=== PATIENT | female | born 1995 | race Caucasian/White ===

== ENCOUNTER 2018-05-08 10:16 | Outpatient (REF) | payer MEDICAID, SELFPAY ==
--- NOTE | 2018-05-08 09:40 | PAPFT_PTH ---
PATIENT: Karlie Corea LOC: [facility] U#:[id number] AGE/SX: 23/F ROOM: RE05/08/[address]: Michelle Walls : 1995 BED: DIS: 05/08/2018 SPEC #: [id number] RECD: 05/08/18 13:21 STATUS: GENIE REIsai #: [id number] GREGORY: 05/08/18 09:[address]: Karlos Bae DEPT: [facility] Cytology RECD BY: Christal Chun ENTERED: 05/08/18 13:21 SP TYPE: PAPFT TING DR: Moi Leon Tissues: 1 - CX/ENDOCX FOR PAP SMEARS Procedures: PAP THIN PREP/[facility]VM Screening Comments: [id number]
== END 2018-05-08 10:36 ==
LOC: LBN 10:16
PROVIDERS: PCP Family Medicine; Visit Provider Obstetrics & Gynecology Gynecology
DX: Z12.4 Encounter for screening for malignant neoplasm of cervix (principal)
CPT/HCPCS: 88142

== ENCOUNTER 2019-04-20 03:25 | Outpatient (REF) | payer MEDICAID, SELFPAY ==
[2019-04-20 17:02] LABS: *AMPHETAMINES SCREEN URINE Negative (Negative); *BARBITURATES SCREEN URINE Negative (Negative); *BENZODIAZEPINES SCREEN URINE Negative (Negative); Cannabinoids THC Negative (Negative); Cocaine Screen,Urine Negative (Negative); METHADONE URINE SCREEN Negative (Negative); OPIATES URINE SCREEN Negative (Negative)
[2019-04-20 17:05] LABS: Tricyclic Antidepressants Negative (Negative)
[2019-04-23 13:45] LABS: Chlamydia Result Negative; GC Result Negative
[2019-04-29 08:47] LABS: Buprenorphine Negative; Norbuprenorphine Negative
== END 2019-04-20 03:45 ==
LOC: LBN 03:25
PROVIDERS: PCP Family Medicine; Visit Provider Advanced Practice Midwife
DX: Z34.91 Encounter for supervision of normal pregnancy, unspecified, first trimester (principal); Z11.3 Encounter for screening for infections with a predominantly sexual mode of transmission
CPT/HCPCS: 80307; 87491; 87591; 87086

== ENCOUNTER 2019-05-17 01:31 | Outpatient (CLI) | payer MEDICAID, SELFPAY ==
[2019-05-17 14:30] LABS: Glucose,1 Hr (Glucola) 76 mg/dL (80-140)
[2019-05-17 14:38] LABS: Abs Immature Grans 0.01 k/cumm (0.0-0.09); Absolute Eosinophil Count 0.07 k/cumm (0.0-0.7); Absolute Lymphocyte Count 1.61 k/cumm (1.2-3.4); Absolute Monocyte Count 0.48 k/cumm (0.11-0.7); Absolute Neutrophil Count 6.56 k/cumm (1.2-6.7); Eosinophils % 0.8; HCT 33.5 % (36.0-46.0); Immature Grans % 0.1; Lymphocytes % 18.4; Mean Corp. HGB Concentration 32.8 g/dL (32.0-36.0); Mean Corpuscular Hemoglobin 20.8 pg (27.0-33.0); Mean Corpuscular Volume 63.3 fL (80-95); Monocytes % 5.5; Neutrophils % 75.2; RBC 5.29 m/cumm (4.00-5.20); RBC Distribution Width 20.9 % (11.7-14.6); White Blood Cell Count 8.73 k/cumm (4.4-10.8)
[2019-05-17 15:09] LABS: Diff Comment RBC Morph Reviewed
[2019-05-17 15:10] LABS: Anisocytosis 2+; Hypochromasia 1+; Microcytosis 2+; Poikilocytes 1+; Polychromasia Present
[2019-05-17 15:12] LABS: Platelet Count 253 x1000/uL (130-400)
[2019-05-17 15:17] LABS: TSH (W/Ref FT4) 0.68 uIU/mL (0.36-3.74)
[2019-05-18 10:37] LABS: HIV-1/2 Ag & Ab Screen Negative (NEGAT)
[2019-05-18 10:39] LABS: Hepatitis B Surface Ag Negative (NEGAT); Hepatitis C Ab w Rflx HCV PCR Negative (NEGAT)
[2019-05-18 11:17] LABS: Varicella IgG Antibody Positive
[2019-05-18 11:22] LABS: Rubella IgG Ab (UVM) Positive
[2019-05-18 16:01] LABS: Syphilis Total Ab w/Reflex Nonreactive (Nonreactive)
== END 2019-05-17 01:51 ==
PROVIDERS: Advanced Practice Midwife; PCP Family Medicine; Visit Provider Internal Medicine Interventional Cardiology
DX: Z34.91 Encounter for supervision of normal pregnancy, unspecified, first trimester (principal); Z11.4 Encounter for screening for human immunodeficiency virus [HIV]; Z11.59 Encounter for screening for other viral diseases; Z01.84 Encounter for antibody response examination
CPT/HCPCS: 36415; 82950; 86787; 86803; 86850; 86900; 86901; 87340; 87389; 84443; 85025; 86762; 86780

== ENCOUNTER 2019-05-21 14:07 | Outpatient (REF) | payer MEDICAID, SELFPAY | END 2019-05-21 14:27 | LOC: LBN 14:07 | PROVIDERS: PCP Family Medicine; Visit Provider Advanced Practice Midwife | DX: R30.0 Dysuria (principal) | CPT/HCPCS: 87077; 87086; 87186 ==

== ENCOUNTER 2019-07-19 02:08 | Outpatient (CLI) | payer MEDICAID, SELFPAY ==
--- NOTE | 2019-07-19 13:47 | DI.US_ITS ---
EXAM: US OB 2-3 TRIMESTER CLINICAL HISTORY: Z34.90 SUPERVISION NORMAL TECHNIQUE: Ultrasound performed using standard protocol. COMPARISON: BIOPHYSICAL PROFILE AND LTD OB from 03/17/2018 FINDINGS: There is a single living intrauterine gestation. The fetus is in the breech position. heart r ate is 160 beats per minute. No anatomic abnormalities are identified. Estimated gestational age is 23 weeks. Amniotic fluid is within normal limits visually. The placenta is anterior without evidence of previa. IMPRESSION: Single living intrauterine gestation. Estimated sonographic age is 23 weeks.
== END 2019-07-19 02:28 ==
PROVIDERS: PCP Urology; Visit Provider Obstetrics & Gynecology
DX: Z34.92 Encounter for supervision of normal pregnancy, unspecified, second trimester (principal); Z36.89 Encounter for other specified antenatal screening; Z3A.23 23 weeks gestation of pregnancy
CPT/HCPCS: 76805

== ENCOUNTER 2019-08-31 01:49 | Outpatient (CLI) | payer MEDICAID, SELFPAY ==
[2019-08-31 15:42] LABS: Abs Immature Grans 0.03 k/cumm (0.0-0.09); Absolute Eosinophil Count 0.07 k/cumm (0.0-0.7); Absolute Lymphocyte Count 1.79 k/cumm (1.2-3.4); Absolute Monocyte Count 0.51 k/cumm (0.11-0.7); Absolute Neutrophil Count 7.18 k/cumm (1.2-6.7); Eosinophils % 0.7; HCT 31.2 % (36.0-46.0); HGB 10.3 g/dL (12.0-15.5); Immature Grans % 0.3 %; Lymphocytes % 18.7; Mean Corpuscular Hemoglobin 22.1 pg (27.0-33.0); Mean Corpuscular Volume 66.8 fL (80-95); Mean Platelet Volume 10.9 fL (8.0-11.0); Monocytes % 5.3; Platelet Count 279 x1000/uL (130-400); RBC 4.67 m/cumm (4.00-5.20); RBC Distribution Width 19.4 % (11.7-14.6); White Blood Cell Count 9.58 k/cumm (4.4-10.8)
[2019-08-31 15:46] LABS: Glucose,1 Hr (Glucola) 141 mg/dL (80-140)
[2019-08-31 16:06] LABS: Diff Comment RBC Morph Reviewed; Microcytosis 3+
== END 2019-08-31 02:09 ==
PROVIDERS: PCP Urology; Visit Provider Obstetrics & Gynecology
DX: Z34.93 Encounter for supervision of normal pregnancy, unspecified, third trimester (principal)
CPT/HCPCS: 36415; 82950; 85025

== ENCOUNTER 2019-09-20 02:18 | Outpatient (CLI) | payer MEDICAID, SELFPAY ==
[2019-09-20 09:51] LABS: Glucose 1 Hour 125 mg/dL
[2019-09-20 11:42] LABS: Glucose 3 Hour 118 mg/dL
== END 2019-09-20 02:38 ==
PROVIDERS: PCP Urology; Visit Provider Obstetrics & Gynecology Gynecology
DX: Z34.93 Encounter for supervision of normal pregnancy, unspecified, third trimester (principal)
CPT/HCPCS: 36410; 36415; 82951

== ENCOUNTER 2019-09-28 01:50 | Outpatient (CLI) | payer MEDICAID, SELFPAY ==
--- NOTE | 2019-09-28 13:11 | DI.US_ITS ---
EXAM: US OB XIOMARA WEIGHT CLINICAL HISTORY: abnormal 1 hour glucola, Z34.90 TECHNIQUE: Ultrasound performed using standard protocol. COMPARISON: US OB 2-3 TRIMESTER from 07/19/2019 FINDINGS: Ob ultrasound was performed utilizing 3rd trimester protocol. Placenta is anterior with no placenta previa. Visually there is a normal quantity of amniotic fluid and the XIOMARA is 18. Fetus is in cephal ic presentation. biometry is consistent with gestational age 33 weeks 6 days and an EDC of 11/10/2019. The estimated weight is 2259 grams which is at the 80th percentile for predicted gestational ag e.
== END 2019-09-28 02:10 ==
PROVIDERS: PCP Urology; Visit Provider Obstetrics & Gynecology
DX: Z34.93 Encounter for supervision of normal pregnancy, unspecified, third trimester (principal); Z3A.33 33 weeks gestation of pregnancy
CPT/HCPCS: 76816

== ENCOUNTER 2019-10-22 09:56 | Outpatient (CLI) | payer MEDICAID, SELFPAY ==
[2019-10-22 10:26] LABS: HCT 35.2 % (36.0-46.0); HGB 11.7 g/dL (12.0-15.5); Mean Corp. HGB Concentration 33.2 g/dL (32.0-36.0); Mean Corpuscular Volume 66.3 fL (80-95); Mean Platelet Volume 11.4 fL (8.0-11.0); Platelet Count 306 x1000/uL (130-400); RBC 5.31 m/cumm (4.00-5.20); RBC Distribution Width 19.8 % (11.7-14.6)
== END 2019-10-22 10:16 ==
PROVIDERS: PCP Urology; Visit Provider Obstetrics & Gynecology
DX: Z34.93 Encounter for supervision of normal pregnancy, unspecified, third trimester (principal)
CPT/HCPCS: 36415; 85027; 87081

== ENCOUNTER 2019-10-22 10:05 | Outpatient (REF) | payer MEDICAID, SELFPAY ==
[2019-10-22 11:41] LABS: *AMPHETAMINES SCREEN URINE Negative (Negative); *BARBITURATES SCREEN URINE Negative (Negative); *BENZODIAZEPINES SCREEN URINE Negative (Negative); Cannabinoids THC Negative (Negative); Cocaine Screen,Urine Negative (Negative); METHADONE URINE SCREEN Negative (Negative); OPIATES URINE SCREEN Negative (Negative)
[2019-10-22 11:43] LABS: Tricyclic Antidepressants Negative (Negative)
[2019-10-25 10:08] LABS: Buprenorphine Negative; Norbuprenorphine Negative
== END 2019-10-22 10:25 ==
LOC: LBN 10:05
PROVIDERS: PCP Urology; Visit Provider Obstetrics & Gynecology
DX: Z34.93 Encounter for supervision of normal pregnancy, unspecified, third trimester (principal); Z36.85 Encounter for antenatal screening for Streptococcus B
CPT/HCPCS: 80307; 87081

== ENCOUNTER 2019-11-08 15:45 | Outpatient (REF) | payer MEDICAID, SELFPAY | END 2019-11-08 16:05 | LOC: LBN 15:45 | PROVIDERS: PCP Urology; Visit Provider Obstetrics & Gynecology Gynecology | DX: J06.9 Acute upper respiratory infection, unspecified (principal) | CPT/HCPCS: 87449 ==

== ENCOUNTER 2019-11-25 03:16 | Inpatient (IN) | payer MEDICAID, SELFPAY ==
[2019-11-25] MEDS: Normal Saline 100 ML (04:37)
[2019-11-25] MEDS: Lidocaine 1% Multi-Dose 20 ML VIAL (10:30)
[2019-11-25] MEDS: Ibuprofen 600 MG TAB ×2 (11:15→18:09)
[2019-11-25] MEDS: Acetaminophen 325 MG TAB (19:45)
[2019-11-26] MEDS: Ibuprofen 600 MG TAB PO ×3 (00:05→15:54)
[2019-11-26] MEDS: HYDROcodone 5/Acetaminophen 325 TAB PO (00:20)
[2019-11-26] MEDS: Acetaminophen 325 MG TAB 650 MG PO (12:24)
--- NOTE | 2019-11-26 16:40 | W.PM.PROGNOT ---
Date of Service Date of service: 11/26/19 Time of Service: 09:00 Assessment and Plan Assessment and plan (1) (normal spontaneous vaginal delivery): Status: Acute Assessment and plan: PPD 1 s/p at term. Plan for discharge home later today. Subjective Subjective Interval history since last seen: Doing well. No problems.. Minimal lochia. No significant pain. Objective Objective Clinical Data: Vital Signs Pain Level 5 11/26/19 15:54 Intake & Output 11/25/19 11/26/19 11/26/19 23:59 11:59 23:59 Weight 220 lb Laboratory Results WBC Cancelled 11/25/19 03:16 RBC Cancelled 11/25/19 03:16 Hgb Cancelled 11/25/19 03:16 Hct Cancelled 11/25/19 03:16 MCV Cancelled 11/25/19 03:16 MCH Cancelled 11/25/19 03:16 MCHC Cancelled 11/25/19 03:16 RDW Cancelled 11/25/19 03:16 Plt Count Cancelled 11/25/19 03:16 MPV Cancelled 11/25/19 03:16
== END 2019-11-26 19:25 | disposition home or self-care (01) | DRG 807 ==
PROVIDERS: Admitting Provider Obstetrics & Gynecology Gynecology; PCP Urology; Visit Provider Obstetrics & Gynecology Gynecology
DX: Z37.0 Single live birth (principal); O71.4 Obstetric high vaginal laceration alone; O48.0 Post-term pregnancy; Z3A.40 40 weeks gestation of pregnancy; O99.824 Streptococcus B carrier state complicating childbirth; O69.81X0 Labor and delivery complicated by cord around neck, without compression, not applicable or unspecified
CPT/HCPCS: 36415; 85027; 86850; 86900; 86901; 99233; J2540; J3490

== ENCOUNTER 2020-12-23 03:19 | Outpatient (CLI) | payer MEDICAID, SELFPAY ==
[2020-12-23 14:04] LABS: *AMPHETAMINES SCREEN URINE Negative (Negative); *BARBITURATES SCREEN URINE Negative (Negative); *BENZODIAZEPINES SCREEN URINE Negative (Negative); Cannabinoids THC Negative (Negative); Cocaine Screen,Urine Negative (Negative); METHADONE URINE SCREEN Negative (Negative); OPIATES URINE SCREEN Negative (Negative)
[2020-12-23 14:09] LABS: Tricyclic Antidepressants Negative (Negative)
[2020-12-24 12:48] LABS: Chlamydia Result Negative (Negative); GC Result Negative (Negative)
[2020-12-27 10:29] LABS: Buprenorphine Negative ng/mL (Cutoff: 5.0); Norbuprenorphine Negative ng/mL (Cutoff: 2.5)
== END 2020-12-23 03:20 | disposition home or self-care (01) ==
LOC: LBO 03:19 → LBN 12:30
PROVIDERS: PCP Urology; Visit Provider Advanced Practice Midwife
DX: Z34.91 Encounter for supervision of normal pregnancy, unspecified, first trimester (principal); Z11.3 Encounter for screening for infections with a predominantly sexual mode of transmission
CPT/HCPCS: 80307; 87491; 87591; 87086

== ENCOUNTER 2020-12-23 03:33 | Outpatient (CLI) | payer MEDICAID, SELFPAY ==
[2020-12-23 11:12] LABS: Abs Immature Grans 0.03 10^3/uL (0.0-0.06); Absolute Basophil Count 0.01 10^3/uL (0.0-0.2); Absolute Eosinophil Count 0.06 10^3/uL (0.0-0.7); Absolute Lymphocyte Count 1.85 10^3/uL (1.2-3.4); Absolute Monocyte Count 0.32 10^3/uL (0.1-0.8); Absolute Neutrophil Count 6.26 10^3/uL (1.2-6.7); Basophils % 0.1; Eosinophils % 0.7; HCT 36.9 % (36.0-46.0); HGB 11.6 g/dL (11.2-15.7); Immature Grans % 0.4; Lymphocytes % 21.7; MCHC 31.4 % (32.0-36.0); MCV 66.7 fL (80-95); Monocytes % 3.8; Neutrophils % 73.3; Nucleated RBC 0 %; RBC 5.53 10^6/uL (3.93-5.22); RDW 20.2 % (11.7-14.6); RDW-SD 46.1 fL; WBC 8.53 10^3/uL (4.4-10.8)
[2020-12-23 11:27] LABS: Glucose,1 Hr (Glucola) 97 mg/dL (80-140)
[2020-12-23 11:30] LABS: Platelet Count 299 10^3/uL (130-400)
[2020-12-23 11:31] LABS: Anisocytosis 2+; Diff Comment Diff Reviewed; Microcytosis 2+
[2020-12-23 12:18] LABS: TSH (W/Ref FT4) 0.54 uIU/mL (0.36-3.74)
[2020-12-24 10:05] LABS: Hepatitis B Surface Ag Negative (Negative)
[2020-12-24 10:45] LABS: HIV-1/2 Ag & Ab Screen Negative (Negative)
[2020-12-24 10:50] LABS: Rubella IgG Ab (UVM) Positive (See Note); Varicella IgG Antibody Positive (See Note)
[2020-12-24 10:57] LABS: Hepatitis C Ab w Rflx HCV PCR Negative (Negative)
[2020-12-24 12:19] LABS: Syphilis Total Ab w/Reflex Nonreactive (Nonreactive)
== END 2020-12-23 03:34 | disposition home or self-care (01) ==
LOC: LBO 03:33
PROVIDERS: Obstetrics & Gynecology; PCP Urology; Visit Provider Advanced Practice Midwife
DX: O99.891 Other specified diseases and conditions complicating pregnancy (principal); Z11.4 Encounter for screening for human immunodeficiency virus [HIV]; Z11.59 Encounter for screening for other viral diseases; Z01.84 Encounter for antibody response examination; Z11.3 Encounter for screening for infections with a predominantly sexual mode of transmission
CPT/HCPCS: 36415; 82950; 86787; 86803; 86850; 86900; 86901; 87340; 87389; 87491; 87591; 84443; 85025; 86762; 86780

== ENCOUNTER 2021-02-16 02:03 | Outpatient (CLI) | payer MEDICAID, SELFPAY ==
--- NOTE | 2021-02-16 07:15 | DI.US_ITS ---
Exam(s) US OB 2-3 TRIMESTER EXAM: US OB 2-3 TRIMESTER CLINICAL HISTORY: Anatomy,z34.90. TECHNIQUE: Transabdominal obstetrical ultrasound was performed. COMPARISON: US US OB XIOMARA WEIGHT from 09/28/2019 FINDINGS: There is a single viable intrauterine gestation with cardiac activity identified-149 bpm. Amniotic fluid: There is a normal amount of amniotic fluid. Placental location: The placenta is posterior fundal grade 0,with no evidence of placenta previa.Dist ance from the tip of placenta to the internal cervical os is 3.7 cm. Cervical length is 4.7 cm. ANATOMY: A 3 vessel umbilical cord is seen. A four-chamber cardiac view was obtained. Right and left ventricular outflow tracts were imaged. There are no obvious abnormalities of the spinal column evident. There is no obvious abnormal ity of the anterior abdominal wall. stomach and urinary bladder are identified and there is no evidence of hydronephrosis. No abnormalities of the upper lip region are identified. No evidence of choroid plexus cysts i n the brain. Dating parameters place this at approximately 20 weeks and 2 days gestational age. BPD measures 20 weeks and 1 day HC measures 20 weeks and 1 day AC measures 20 weeks and 2 days FL measures 20 weeks and 2 days Estimated weight is 343 gm-0 pounds, 12 ounces Fetus is at the 44th percentile on the Hadlock scale. IMPRESSION:: Single viable intrauterine gestation which is approximately 20 weeks and 2 days gestati onal age, implying an SUDARSHAN of July 04, 2021. There are no obvious anomalies evident on today's study. The placenta is posterior-fundal. With no evidence of placenta previa. There is a normal amount of amniotic fluid. DATA REPOSITORY:
== END 2021-02-16 02:23 ==
PROVIDERS: PCP Urology; Visit Provider Obstetrics & Gynecology
DX: Z34.92 Encounter for supervision of normal pregnancy, unspecified, second trimester (principal); Z3A.20 20 weeks gestation of pregnancy
CPT/HCPCS: 76805

== ENCOUNTER 2021-04-14 03:26 | Outpatient (CLI) | payer MEDICAID, SELFPAY ==
[2021-04-14 12:25] LABS: HCT 31.8 % (36.0-46.0); MCH 21.5 pg (27.0-33.0); MCHC 31.4 % (32.0-36.0); MCV 68.4 fL (80-95); MPV 10.8 fL (8.0-11.0); Platelet Count 254 10^3/uL (130-400); RBC 4.65 10^6/uL (3.93-5.22); RDW 19.1 % (11.7-14.6); RDW-SD 45.3 fL; WBC 7.65 10^3/uL (4.4-10.8)
[2021-04-14 12:47] LABS: Glucose,1 Hr (Glucola) 124 mg/dL (80-140)
== END 2021-04-14 03:27 | disposition home or self-care (01) ==
LOC: LBO 03:27
PROVIDERS: PCP Urology; Visit Provider Obstetrics & Gynecology Gynecology
DX: Z34.93 Encounter for supervision of normal pregnancy, unspecified, third trimester (principal); Z3A.28 28 weeks gestation of pregnancy
CPT/HCPCS: 36415; 82950; 85027

== ENCOUNTER 2021-06-16 10:23 | Outpatient (REF) | payer MEDICAID, SELFPAY ==
[2021-06-16 11:43] LABS: *AMPHETAMINES SCREEN URINE Negative (Negative); *BARBITURATES SCREEN URINE Negative (Negative); *BENZODIAZEPINES SCREEN URINE Negative (Negative); Cannabinoids THC Negative (Negative); Cocaine Screen,Urine Negative (Negative); METHADONE URINE SCREEN Negative (Negative); OPIATES URINE SCREEN Negative (Negative)
[2021-06-16 11:46] LABS: Tricyclic Antidepressants Negative (Negative)
[2021-06-19 09:01] LABS: Buprenorphine Negative ng/mL (Cutoff: 5.0); Norbuprenorphine Negative ng/mL (Cutoff: 2.5)
== END 2021-06-16 10:24 | disposition home or self-care (01) ==
LOC: LBN 10:23
PROVIDERS: PCP Urology; Visit Provider Obstetrics & Gynecology
DX: Z34.83 Encounter for supervision of other normal pregnancy, third trimester (principal); Z36.85 Encounter for antenatal screening for Streptococcus B; Z3A.36 36 weeks gestation of pregnancy
CPT/HCPCS: 80307; 87081

== ENCOUNTER 2021-07-04 07:32 | Inpatient (IN) | payer MEDICAID, SELFPAY ==
[2021-07-04] VITALS (10 sets, daily range): BP systolic 124–163; BP diastolic 66–88; PULSE 64–100; RESP 16; TEMP 36.9–37.1
[2021-07-04] MEDS: Normal Saline Flush 10 ML SYR IVP (09:00)
--- NOTE | 2021-07-04 09:20 | HPE_ITS ---
Date of service: 07/04/21 Time of Service: 09:20 Assessment and Plan Assessment and plan (1) Encounter for elective induction of labor: Status: Acute Assessment and plan: With the patient's Martinez score for the plan is cervical ripening with misoprostol. Patient is agreeable to the plan (2) GBS (group B Streptococcus carrier), +RV culture, currently : Status: Acute Assessment and plan: Will begin GBS prophylaxis OB-HPI Labor/Delivery History of Present Illness Reason for Visit: iol Chief Complaint: Scheduled Induction of Labor Indication for Induction: Other (maternal request); Maternal Discomfort , Associated Signs and Symptoms of Maternal Discomfort: pelvic pressure. inability to carry out ADLs.. SUDARSHAN Calculator Estimated Delivery Date Method Current WG Current Estimate 07/04/21 Ultrasound #1 40w 0d Other Estimates 07/03/21 LMP (Uncertain) 40w 1d History of Present Expected Delivery Route/Plan - MD patient FOB-Luke Specific Issues/Plan 1. BMI 34 - early GTT: 97 2. Karlie and partner decline covid vaccine. Had covid 06/2020. 3. 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 Declines genetic testing 5. GBS Positive, will need antibiotic prophylaxis Review of Systems All systems reviewed & are unremarkable except as noted in HPI and below Cardiovascular Cardiovascular: Reports system reviewed and no additional complaints, except as documented Respiratory Respiratory: Reports system reviewed and no additional complaints, except as documented Genitourinary Genitourinary: Reports system reviewed and no additional complaints, except as documented Neurologic Neurologic: Reports system reviewed and no additional complaints, except as documented Psychiatric Psychiatric: Reports system reviewed and no additional complaints, except as documented [facility] Medical History (Updated 07/04/21 @ 11:16 by Michelle Walls MD) 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 Pt's mother and MGM also carry gene. Pt's eval for trait and was negative. at early stage Rash and nonspecific skin eruption Family History (Updated 12/23/20 @ 10:51 by Brook Christine CNM) Father Migraines, neuralgic Sister Seizures Delta thalassemia Maternal Aunt Bone cancer Delta thalassemia Mother Delta thalassemia Social History Smoking/Tobacco Use Status: Never Second Hand Exposure: No Smoking risk assessment performed?: Yes Alcohol Intake: former Drug use: Never Substance use type: does not use Adopted: No Foster care: No Household members: spouse and other Details: Gurwinder Aguayo and Андрей () Number of Children: 2 current occupation: Homemaker Do you think of yourself as: straight/heterosexual Current gender identity: female What is your relationship status?: Panel score (0-1 are the most socially isolated patients): 1 Miriam/Mosque: synagogue Seatbelt use: always Helmet use: Yes Drive intox or ride w/intox power screwdriver operator: No Water heater temp set <120 deg: Yes Working smoke detector in home: Yes Fire extinguisher in home: Yes Carbon monox detector in home: Yes Firearms in home: No Do you feel safe at home: Yes Do you feel safe in your relationship?: Yes Victim of physical abuse: No Victim of emotional abuse: No Victim of sexual abuse: No Female Reproductive History Menstrual control method: natural family planning History History 3 Para 2 Hx # Term Pregnancies 2 Multiple births 0 Hx # Pregnancies 0 Ectopic pregnancies 0 AB induced Hx Number of Living Children 2 AB spontaneous Past Pregnancies Del. Date GA/Weeks # Outcome Route Wgt Sex Labor Lgth Anesthes ia Location Prov Complic 03/21/18 41 Successful vaginal 8 lb 2 oz Male [place] 11/25/19 40 No Successful vaginal 7 lb 8 oz Male 7 hours AOC Delivery Date: 03/21/18 IOL for postdates. [place]. Dr. Michele Christine,[place] Delivery Date: 11/25/19 Michelle Guerrero Allergies and Home Medications Allergies Allergy/AdvReac Type Severity Reaction Status Date / Time tree and shrub pollen Allergy Mild Verified 07/02/21 10:58 Home Medications Medication Instructions Recorded Confirmed Type Formula 1 ea PO DAILY 09/02/17 07/04/21 History Fish Oil 1 ea PO DAILY 11/17/17 07/04/21 History ascorbic acid (vitamin C) 500 mg 500 mg PO DAILY 06/14/19 07/04/21 History tablet ferrous sulfate 325 mg (65 mg 325 mg PO DAILY #30 tab 08/31/19 07/04/21 Rx iron) tablet cholecalciferol (vitamin D3) 125 125 mcg PO DAILY 12/23/20 07/04/21 History mcg (5,000 unit) capsule calcium carb-magnesium carb 250 1 tab PO DAILY tab 05/29/21 07/04/21 History mg-300 mg tablet Exam Physical Exam Vital Signs Reviewed: Yes Narrative: Pt is a 26yo female currently 40w1d EGA by LMP presents for IOL. Constitutional Constitutional: no acute distress Detailed Labor and Delivery Exam Dilation: 1 Effacement (%): 50 station: -3 Cervix position: posterior Consistency: soft Martinez Score: Cervical Points Exam 0 1 2 3 Dilation Closed 1-2cm 3-4 cm 5-6cm Effacement 0-30% 40-50% 60-70% 80% Consistency Firm Medium Soft Station -3 -2 -1,0 +1,+2 Position Posterior Mid Anterior MARTINEZ Score(Cervical Ripeness Score): 4 Amniotic Membrane Status: Intact Monitor Mode: External Contraction Frequency(min): Q4-5 Contraction Duration(sec): 40-60 Contraction Intensity: Mild Fetus A Heart Rate Baseline: 135 Monitor Accelerations: 15 X 15 Monitor Decelerations: None Variability: Moderate (6-25 BPM) Presentation: Cephalic Categories: Category I Est. Weight: 3700 lb HEENT Exam HEENT Exam: Normal Neck Exam Neck Exam: Normal Respiratory Exam Respiratory Exam: Normal Cardiovascular Exam Cardiovascular Exam: Normal Abdominal Exam Abdominal Exam: Normal Rectal Exam Rectal Exam: Not Done Exam Exam: Normal (SVE performed. Pelvis adequate) Extremities Exam Extremities Exam: Normal Skin Exam Skin Exam: Normal Neurological Exam Neurological Exam: Normal Psychiatric Exam Psychiatric Exam: Normal Results Results Group Beta Strep: Positive Risk Assessment Risk for Shoulder Dystocia Historical/Initial OB: POSITIVE FOR: Pre- BMI>30; NEGATIVE FOR: Pelvic Abnormality, Previous Shoulder Dystocia or Previous Macrosomia Risk for Pre-Eclampsia Yes, if one or more: NEGATIVE FOR: Hx Pre-E/Gest HTN, Chronic HTN, Multiple Gestation, Pre-gestational DM, Renal Disease, Systemic Lupus or APA Syndrome Yes, if 2 or more: POSITIVE FOR: BMI>30; NEGATIVE FOR: Nulliparity, Age>= 35 yrs, >10yr btwn pregnancies, ethinicty, Mother/Sister w/ Pre-E or Previous IUGR Risk for Post- Hemorrhage Initial: NEGATIVE FOR: Multiple Gestation, Previous PPH, Known Clotting Deficiency, Grand Multiparity or Anticoagulation Risks Reviewed Risks Reviewed Upon Admission: Yes
[2021-07-04] MEDS: Lactated Ringers 1,000 ML 200 ML IV (09:45)
[2021-07-04] MEDS: Penicillin G POT. 5,000,000 UNITS in Normal Saline 100 ML 200 UNITS IVPB (09:45)
[2021-07-04 09:51] LABS: HCT 38.7 % (36.0-46.0); HGB 12.4 g/dL (11.2-15.7); MCH 22.4 pg (27.0-33.0); MCV 69.9 fL (80-95); MPV 10.7 fL (8.0-11.0); Platelet Count 258 10^3/uL (130-400); RBC 5.54 10^6/uL (3.93-5.22); RDW 18.8 % (11.7-14.6); RDW-SD 44.6 fL; WBC 10.31 10^3/uL (4.4-10.8)
[2021-07-04] MEDS: miSOPROStol 25 MCG TAB VG (09:52)
[2021-07-04] MEDS: Penicillin G POT. 3,000,000 UNITS in Normal Saline 50 ML 100 UNITS IVPB ×2 (13:50→18:05)
--- NOTE | 2021-07-04 13:54 | W.PM.OBNL1 ---
Date of service: 07/04/21 Time of Service: 13:54 Informed Consent Informed Consent: Induction of Labor Contractions Monitor Mode: External Contraction Frequency(min): irreg Intensity: Mild Fetus A Monitor: External (US) Heart Rate Baseline: 135 Variability: Moderate (6-25 BPM) Categories: Category I FHR Rhythm: Regular Characteristics: Normal Accelerations: 15 X 15 Decelerations: None Amniotic Membrane Status: Intact Assessment and Plan Assessment and plan (1) GBS (group B Streptococcus carrier), +RV culture, currently : Status: Acute Assessment and plan: Pt receiving appropriate GBS prophylaxis (2) Encounter for elective induction of labor: Status: Acute Assessment and plan: One dose of vaginal Misoprostil this morning. No evdidence of response to medication. Plan to begin Oxytocin protocol. Objective Abnormal lab results 07/04/21 Range/Units 09:40 RBC 5.54 H (3.93-5.22) 10^6/uL MCV 69.9 L (80-95) fL MCH 22.4 L (27.0-33.0) pg RDW 18.8 H (11.7-14.6) % Temp Pulse Resp BP 98.4 F 71 16 124/75 07/04/21 13:38 07/04/21 13:38 07/04/21 13:38 07/04/21 13:38 Laboratory Results WBC 10.31 10^3/uL (4.4-10.8) 07/04/21 09:40 RBC 5.54 10^6/uL (3.93-5.22) H 07/04/21 09:40 Hgb 12.4 g/dL (11.2-15.7) 07/04/21 09:40 Hct 38.7 % (36.0-46.0) 07/04/21 09:40 MCV 69.9 fL (80-95) L 07/04/21 09:40 MCH 22.4 pg (27.0-33.0) L 07/04/21 09:40 MCHC 32.0 % (32.0-36.0) 07/04/21 09:40 RDW 18.8 % (11.7-14.6) H 07/04/21 09:40 Plt Count 258 10^3/uL (130-400) 07/04/21 09:40 MPV 10.7 fL (8.0-11.0) 07/04/21 09:40 Patient ABO/Rh O Positive 07/04/21 09:40 Antibody Screen NEGATIVE 07/04/21 09:40 Subjective Patient Reports: No new Complaints Interval history since last seen: Pt had one dose of vaginal Misoprostil 25mcg several hours ago with no appreciable increase in contractions or pt discomfort. Results Hemoglobin/Hematocrit: Hgb 12.4 g/dL (11.2-15.7) 07/04/21 09:40 Hct 38.7 % (36.0-46.0) 07/04/21 09:40 Abnormal Lab Findings: Abnormal Labs 07/04/21 09:40 RBC 5.54 H MCV 69.9 L MCH 22.4 L RDW 18.8 H
[2021-07-04] MEDS: Lactated Ringers 1,000 ML 125 ML IV (13:58)
[2021-07-04] MEDS: Oxytocin/Normal Saline 30 UNIT/500 ML BAG 2 UNITS IV (14:20)
--- NOTE | 2021-07-04 16:47 | W.PM.OBNL1 ---
Date of service: 07/04/21 Time of Service: 16:47 Informed Consent Informed Consent: Induction of Labor Pelvic Exam Dilation: 1 Effacement (%): 75 station: -2 Position: OA Cervix Position: mid Consistency: soft Vaginal Exam Presentation: Cephalic Contractions Monitor Mode: External Contraction Frequency(min): 3-5 Contraction Duration(sec): 50 Intensity: Mild/Moderate Fetus A Monitor: External (US) Heart Rate Baseline: 140 Presentation: Cephalic Variability: Moderate (6-25 BPM) Categories: Category I FHR Rhythm: Regular Characteristics: Normal Accelerations: 15 X 15 Decelerations: None Amniotic Membrane Status: Ruptured Rupture Method: Artifical Amniotic Fluid: Clear Date of Membrane Rupture: 07/04/21 Time of Membrane Rupture: 16:48 Assessment and Plan Assessment and plan (1) Encounter for elective induction of labor: Status: Acute Assessment and plan: Oxytocin infusion currently 6 milliunits/min. AROM performed without difficulty. We will continue present course of management. (2) GBS (group B Streptococcus carrier), +RV culture, currently : Status: Acute Objective Abnormal lab results 07/04/21 Range/Units 09:40 RBC 5.54 H (3.93-5.22) 10^6/uL MCV 69.9 L (80-95) fL MCH 22.4 L (27.0-33.0) pg RDW 18.8 H (11.7-14.6) % Temp Pulse Resp BP 98.4 F 71 16 124/75 07/04/21 13:38 07/04/21 13:38 07/04/21 13:38 07/04/21 13:38 Laboratory Results WBC 10.31 10^3/uL (4.4-10.8) 07/04/21 09:40 RBC 5.54 10^6/uL (3.93-5.22) H 07/04/21 09:40 Hgb 12.4 g/dL (11.2-15.7) 07/04/21 09:40 Hct 38.7 % (36.0-46.0) 07/04/21 09:40 MCV 69.9 fL (80-95) L 07/04/21 09:40 MCH 22.4 pg (27.0-33.0) L 07/04/21 09:40 MCHC 32.0 % (32.0-36.0) 07/04/21 09:40 RDW 18.8 % (11.7-14.6) H 07/04/21 09:40 Plt Count 258 10^3/uL (130-400) 07/04/21 09:40 MPV 10.7 fL (8.0-11.0) 07/04/21 09:40 Patient ABO/Rh O Positive 07/04/21 09:40 Antibody Screen NEGATIVE 07/04/21 09:40 Subjective Patient Reports: No new Complaints Results Hemoglobin/Hematocrit: Hgb 12.4 g/dL (11.2-15.7) 07/04/21 09:40 Hct 38.7 % (36.0-46.0) 07/04/21 09:40 Abnormal Lab Findings: Abnormal Labs 07/04/21 09:40 RBC 5.54 H MCV 69.9 L MCH 22.4 L RDW 18.8 H Procedure Procedures: Cervical Ripening Cervical Ripening: Misoprostol
[2021-07-04] MEDS: Ibuprofen 600 MG TAB PO (20:39)
[2021-07-04] MEDS: Acetaminophen 325 MG TAB 650 MG PO (23:13)
[2021-07-05] MEDS: Ibuprofen 600 MG TAB PO ×2 (02:14→07:45)
[2021-07-05] MEDS: Acetaminophen 325 MG TAB 650 MG PO ×3 (02:14→11:42)
[2021-07-05 02:23] VITALS: BP 144/84; PULSE 75; RESP 18; TEMP 36.7
[2021-07-05] MEDS: Docusate Sodium 100 MG CAP PO (07:45)
--- NOTE | 2021-07-05 10:54 | W.OBDELIVERY ---
Date of service: 07/05/21 Time of Service: 10:54 OB Labor/ Delivery Information Providers Doctor: Michelle Walls Nurse: Lorena Pantoja Nurse: Sandrita Jeffries Labor/Delivery Information Number of Babies in Womb: 1 Steroids Given: None Reason Steroids Not Administered: N/A Group Beta Strep: Positive Rubella Status: Immune Blood Type: O+ Varicella Immunity: Immune Maternal Complications: None Shoulder Dystocia: No Stages of Labor Onset of Labor Date: 07/04/21 Onset of Labor Time: 18:00 Complete Dilatation Date: 07/04/21 Complete Dilatation Time: 19:40 Labor - Stage 1 Duration: 0 minutes ROM Baby A: 07/04/21 ROM Baby A: 16:48 ROM Total Time- Baby A: [id number] Delivery Date-Baby A: 07/04/21 Delivery Time-Baby A: 19:46 Labor Stage 2 Duration: 6 minutes Placenta Delivery Date-Baby A: 07/04/21 Placenta Delivery Time-Baby A: 19:56 Labor-Stage 3 Duration: 10 minutes Total Length of Labor-Baby A: 1 hours and 46 minutes Placenta Cultured: No Placenta Status: Delivered Baby A Gender: Female Gestational Status: Term (39-41.6 wks) Gestational Age in Weeks/Days: 40 Weeks and 0 Days weight: 7 lb 8.637 oz Length-Baby A: 19.69 in Head Circumference-Baby A: 13.58 in Score-1 Minute Interval(Baby A) Heart Rate-1 minute: 100 BPM or Greater Respiratory Effort- 1 minute: Spontaneous/Strong Cry Muscle Tone-1 minute: Active Movement Reflex Response-1 minute: Prompt Response Color-1 minute: Pallor or Cyanosis Total Score-1 minute: 8 Score-5 Minute Interval(Baby A) Heart Rate- 5 minute: 100 BPM or Greater Respiratory Effort-5 minute: Spontaneous/Strong Cry Muscle Tone-5 minute: Active Movement Reflex Response-5 minute: Prompt Response Color-5 minute: Bluish Hands or Feet Total Score- 5 minute: 9 Hemorrrhage Note Total Blood Loss for PPH Event Quantitative Blood Loss: 100
--- NOTE | 2021-07-05 10:55 | W.PM.OBDISCH ---
Date of service: 07/05/21 Time of Service: 10:56 DS: Diagnosis Discharge Diagnosis (1) Encounter for elective induction of labor: Status: Acute (2) GBS (group B Streptococcus carrier), +RV culture, currently : Status: Acute (3) Vaginal delivery: Status: Acute Discharge Plan Disposition Patient Disposition: HOME Condition: Good Discharge Details Reason For Visit: iol Admit Date/Time: 07/04/21 07:32 Admit Provider: Michelle Walls Attending Provider: Michelle Walls Primary Care Provider: Spencer Adkins Hospital Course Hospital Course: Patient was admitted on 07/04/2021 at term for elective induction of labor secondary maternal discomfort. She had 1 dose of 25 mcg misoprostol vaginally in the morning and receive oxytocin augmentation. She went on to have spontaneous vaginal delivery of a healthy female infant Apgars 9/9. Her daughter is at this time unnamed. Patient requested discharged home on day 1 successfully breast-feeding without complaints of pain or breast discomfort. The plan is to have her make an appointment for 2-week women's wellness visit. Home Meds and New Rx's Prescriptions: No Action cholecalciferol (vitamin D3) 125 mcg (5,000 unit) capsule 125 mcg PO DAILY RF: 0 calcium carb-magnesium carb 250-300 mg tablet 1 tab PO DAILY RF: 0 ferrous sulfate [Feosol] 325 mg (65 mg iron) tablet 325 mg PO DAILY Qty: 30 RF: 4 Formula 1 EACH tablet 1 ea PO DAILY RF: 0 Fish Oil 1 EACH capsule 1 ea PO DAILY RF: 0 ascorbic acid (vitamin C) [Vitamin C] 500 mg tablet 500 mg PO DAILY RF: 0 Discharge Instructions Additional Instructions: Call women's wellness on 07/06/2021 and make a 2-week visit with Dr. Walls. Stand Alone Forms: BC Instructions, BC Post Vaginal Deliver Activity:: Activity as Tolerated Equipment/Supplies:: No Equipment Needed Diet:: As Tolerated Discharge Orders Discharge Orders: Discharge Order (Routine); Ordered 07/05/21 Ordered By: Michelle Walls OB:DS Summary Summary Episiotomy Description: None Laceration Description: None Laceration Extension: N/A Contraception Discussed Contraception Discussed: Yes Contraceptive Plan: Not planning to use, [place] Infant Gender-Baby A: Female weight: 7 lb 8.637 oz Status at Discharge Functional status at discharge: independent ambulation Overall status at discharge: patient is progressing back to baseline Mental Status: mental status grossly normal Speech and Movement: speech and movement normal Mood: congruent mood Affect: normal affect Exam Physical Exam Vital signs: Temp Pulse Resp BP 98.1 F 75 18 144/84 H 07/05/21 02:23 07/05/21 02:23 07/05/21 02:23 07/05/21 02:23 Vital Signs Reviewed: Yes Narrative: day 1 after spontaneous vaginal delivery for an elective induction of labor at term. Uncomplicated spontaneous vaginal delivery. Patient has been breast-feeding successfully and wishes to be discharged with her home later today. She will follow up in the office in approximately 2 weeks for a check. Constitutional Constitutional: no acute distress HEENT Exam HEENT Exam: Normal Neck Exam Neck Exam: Normal Respiratory Exam Respiratory Exam: Normal Cardiovascular Exam Cardiovascular Exam: Normal Abdominal Exam Abdomen: Diastasis (None abdomen soft nontender) Fundal Exam Fundus: Below Umbilicus Rectal Exam Rectal Exam: Not Done Extremities Exam Extremity Exam: Normal Back/Spine/Pelvis Exam Back Exam: Not Done Skin Exam Skin Exam: Normal Neurological Exam Neurological Exam: Not Done Psychiatric Exam Psychiatric Exam: Normal [facility] Medical History (Updated 07/05/21 @ 10:56 by Michelle Walls MD) 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 Pt's mother and MGM also carry gene. Pt's eval for trait and was negative. at early stage Rash and nonspecific skin eruption Family History (Updated 12/23/20 @ 10:51 by Brook Christine CNM) Father Migraines, neuralgic Sister Seizures Delta thalassemia Maternal Aunt Bone cancer Delta thalassemia Mother Delta thalassemia Social History (Updated 07/05/21 @ 10:57 by Michelle Walls MD) Smoking/Tobacco Use Status: Never Second Hand Exposure: No Smoking risk assessment performed?: Yes Alcohol Intake: former Drug use: Never Substance use type: does not use Adopted: No Foster care: No Household members: spouse and other Details: Gurwinder Aguayo and Андрей (infant) Number of Children: 3 current occupation: Homemaker Do you think of yourself as: straight/heterosexual Current gender identity: female What is your relationship status?: Panel score (0-1 are the most socially isolated patients): 1 Miriam/Scientologist: christianity Seatbelt use: always Helmet use: Yes Drive intox or ride w/intox regional company flatbed truck driver: No Water heater temp set <120 deg: Yes Working smoke detector in home: Yes Fire extinguisher in home: Yes Carbon monox detector in home: Yes Firearms in home: No Do you feel safe at home: Yes Do you feel safe in your relationship?: Yes Victim of physical abuse: No Victim of emotional abuse: No Victim of sexual abuse: No Female Reproductive History Menstrual control method: natural family planning History History 3 Para 2 Hx # Term Pregnancies 2 Multiple births 0 Hx # Pregnancies 0 Ectopic pregnancies 0 AB induced Hx Number of Living Children 2 AB spontaneous Past Pregnancies Del. Date GA/Weeks # Outcome Route Wgt Sex Labor Lgth Anesthesia Location Prov Complic 03/21/18 41 Successful vaginal 8 lb 2 oz Male [place] 11/25/19 40 No Successful vaginal 7 lb 8 oz Male 7 hours AOC Delivery Date: 03/21/18 IOL for postdates. [place]. Dr. Michele [place] Delivery Date: 11/25/19 Michelle Guerrero DS: Data Vitals/I&O Vitals and I&O: Vital Signs Temperature 98.1 F 07/05/21 02:23 Pulse 75 07/05/21 02:23 Pulse Rhythm Regular 07/05/21 07:16 Respiratory Rate 18 07/05/21 02:23 Respiratory Depth Normal 07/04/21 10:07 Blood Pressure 144/84 H 07/05/21 02:23 Blood Pressure Mean 104 07/05/21 02:23 Oxygen Delivery Method Room Air 07/04/21 09:58 Oxygen Flow Rate 0 07/04/21 09:58 Pain Level 5 07/05/21 02:23 Intake & Output 07/04/21 07/04/21 07/05/21 11:59 23:59 10:59 Intake Total 261.333 / 750.000 488.667 / 488.667 Output Total 200 / 200 1150 / 1150 Balance 61.333 / 550.000 -661.333 / -661.333 Weight 208 lb Intake: IV 261.333 / 750.000 488.667 / 488.667 Output: Urine 200 / 200 1150 / 1150
[2021-07-05 11:16] VITALS: BP 127/84; PULSE 71; RESP 16; TEMP 36.8
== END 2021-07-05 19:55 | disposition home or self-care (01) | DRG 807 ==
PROVIDERS: Admitting Provider Obstetrics & Gynecology Gynecology; PCP Urology; Visit Provider Obstetrics & Gynecology Gynecology
DX: O48.0 Post-term pregnancy (principal); Z37.0 Single live birth; O99.824 Streptococcus B carrier state complicating childbirth; Z3A.40 40 weeks gestation of pregnancy
CPT/HCPCS: 36415; 85027; 86850; 86900; 86901; 59200; J2540; J3490

== ENCOUNTER 2021-08-05 15:45 | Outpatient (REF) | payer MEDICAID, SELFPAY ==
--- NOTE | 2021-08-05 15:30 | PAPFT_PTH ---
PATIENT: Karlie Corea LOC: [facility]O U#:[id number] AGE/SX: 26/F ROOM: RE08/05/[address]: Michelle Walls : 1995 BED: DIS: 08/05/2021 SPEC #: [id number] RECD: 08/05/21 17:11 STATUS: GENIE REQ #: [id number] GREGORY: 08/05/21 15:[address]: Michelle Walls DEPT: [facility] Cytology RECD BY: Christal Chun ENTERED: 08/05/21 17:12 SP TYPE: PAPFT OTHR DR: Spencer Adkins Tissues: 1 - CX/ENDOCX FOR PAP SMEARS Procedures: PAP THIN PREP/[facility] Screening Comments: [id number]
== END 2021-08-05 15:46 | disposition home or self-care (01) ==
LOC: LBN 15:45
PROVIDERS: PCP Urology; Visit Provider Obstetrics & Gynecology Gynecology
DX: Z12.4 Encounter for screening for malignant neoplasm of cervix (principal)
CPT/HCPCS: 88142

== ENCOUNTER 2022-11-01 03:16 | Outpatient (CLI) | payer MEDICAID, SELFPAY ==
[2022-11-01 14:59] LABS: Abs Immature Grans 0.04 10^3/uL (0.0-0.06); Absolute Basophil Count 0.01 10^3/uL (0.0-0.2); Absolute Eosinophil Count 0.06 10^3/uL (0.0-0.7); Absolute Lymphocyte Count 2.17 10^3/uL (1.2-3.4); Absolute Monocyte Count 0.47 10^3/uL (0.1-0.8); Basophils % 0.1; Eosinophils % 0.6; HCT 35.3 % (36.0-46.0); HGB 11.3 g/dL (11.2-15.7); Immature Grans % 0.4; Lymphocytes % 23.2; MCV 66 fL (80-95); Neutrophils % 70.7; Platelet Count 269 10^3/uL (130-400); RBC 5.37 10^6/uL (3.93-5.22); RDW 21.2 % (11.7-14.6); RDW-SD 45.8 fL; WBC 9.35 10^3/uL (4.4-10.8)
[2022-11-01 15:13] LABS: Anisocytosis 2+; Diff Comment Diff Reviewed; Microcytosis 2+
[2022-11-01 15:30] LABS: Glucose,1 Hr (Glucola) 99 mg/dL (80-140)
[2022-11-02 09:51] LABS: HIV-1/2 Ag & Ab Screen Negative (Negative)
[2022-11-02 10:08] LABS: Hepatitis C Ab w Rflx HCV PCR Negative (Negative)
[2022-11-02 10:33] LABS: Hepatitis B Surface Ag Negative (Negative)
[2022-11-02 11:27] LABS: Varicella IgG Antibody Positive (See Note)
[2022-11-02 11:30] LABS: Rubella IgG Ab (UVM) Positive (See Note)
[2022-11-03 15:03] LABS: Syphilis IgG w/Reflex Nonreactive (Nonreactive)
== END 2022-11-01 03:17 | disposition home or self-care (01) ==
LOC: LBO 03:16
PROVIDERS: PCP Urology; Visit Provider Advanced Practice Midwife
DX: Z34.91 Encounter for supervision of normal pregnancy, unspecified, first trimester (principal); Z3A.11 11 weeks gestation of pregnancy
CPT/HCPCS: 36415; 82950; 86787; 86803; 86850; 86900; 86901; 87340; 87389; 85025; 86762; 86780

== ENCOUNTER 2022-11-01 18:50 | Outpatient (REF) | payer MEDICAID, SELFPAY ==
[2022-11-01 15:40] LABS: *AMPHETAMINES SCREEN URINE Negative (Negative); *BARBITURATES SCREEN URINE Negative (Negative); *BENZODIAZEPINES SCREEN URINE Negative (Negative); Cannabinoids THC Negative (Negative); Cocaine Screen,Urine Negative (Negative); METHADONE URINE SCREEN Negative (Negative); OPIATES URINE SCREEN Negative (Negative); Tricyclic Antidepressants Negative (Negative)
[2022-11-03 13:13] LABS: Chlamydia Result Negative (Negative); GC Result Negative (Negative)
[2022-11-05 16:48] LABS: Buprenorphine Negative ng/mL (Cutoff: 5.0); Norbuprenorphine Negative ng/mL (Cutoff: 2.5)
== END 2022-11-01 18:51 | disposition home or self-care (01) ==
LOC: LBN 18:50
PROVIDERS: PCP Urology; Visit Provider Advanced Practice Midwife
DX: Z34.91 Encounter for supervision of normal pregnancy, unspecified, first trimester (principal); Z11.3 Encounter for screening for infections with a predominantly sexual mode of transmission; Z3A.11 11 weeks gestation of pregnancy
CPT/HCPCS: 80307; 80348; 87491; 87591; 87086

== ENCOUNTER 2022-11-25 08:31 | Outpatient (CLI) | payer MEDICAID, SELFPAY ==
--- NOTE | 2022-11-25 08:30 | RT.EKG_ITS ---
APPROVED REPORT Exam: Resting ECG Reason for Exam: palpitations Patient Location: O HR:62 bpm ECG Measurements Heart Rate 62 AXIS IN 137 P 68 QRSd 90 QRS 26 QT 415 T 35 QTc 422 Conclusion Sinus rhythm...normal P axis, V-rate 50- 99 Baseline wander in lead(s) V3 Normal Electrocardiogram
== END 2022-11-25 08:32 | disposition home or self-care (01) ==
LOC: DI.CARD 08:32
PROVIDERS: PCP Urology; Visit Provider Internal Medicine Cardiovascular Disease
DX: R00.2 Palpitations
CPT/HCPCS: 93010

== ENCOUNTER 2022-12-24 00:09 | Outpatient (CLI) | payer MEDICAID, SELFPAY ==
--- NOTE | 2022-12-24 06:30 | DI.US_ITS ---
Exam(s) US OB 2-3 TRIMESTER EXAM: US OB 2-3 TRIMESTER CLINICAL HISTORY: ,z34.90. TECHNIQUE: Transabdominal obstetrical ultrasound performed. COMPARISON: US POCUS EXAM from 10/08/2022 FINDINGS: Number of fetuses: One. position: Variable Placental grade: 1 Placental location: Posterior. No evidence of previa. Tip of placenta measures 3.7 centimeters from the internal os BIOMETRIC DATA: BPD: 43mm = 19+ 0 weeks HC: 164mm = 19+ 1 weeks AC: 134mm = 18+ 6 weeks FL: 29mm = 18+ 6 weeks Cisterna Magna: 3.2 mm Cerebellum: 1.7 cm EFW: 263 grms 48% Composite Age: 19+ 1 weeks EDC by US: 20 May 2023 Heart Rate: 150BPM Amniotic fluid : Amount of fluid is within normal limits. ANATOMICAL SURVEY: Four-chambered heart: Unremarkable. LVOT: Unremarkable. RVOT: Unremarkable. Left-sided stomach: Unremarkable. urinary bladder: Unremarkable. Bilateral kidneys: Unremarkable. Three-vessel cord: Unremarkable. Cord insertion: Unremarkable. Posterior fossa:Unremarkable. ventricles: Unremarkable. nose: Unremarkable. lips: Unremarkable. palate: Unremarkable. spine: Unremarkable. Two arms and two legs: Unremarkable. IMPRESSION: 1. Single live intrauterine gestation measuring 19 weeks 0 days. 2. Normal anatomic survey. DATA REPOSITORY:
== END 2022-12-24 00:29 ==
LOC: DI 00:09
PROVIDERS: PCP Urology; Visit Provider Advanced Practice Midwife
DX: Z34.90 Encounter for supervision of normal pregnancy, unspecified, unspecified trimester (principal)
CPT/HCPCS: 76805

== ENCOUNTER 2023-03-04 01:49 | Outpatient (CLI) | payer MEDICAID, SELFPAY ==
[2023-03-04 14:44] LABS: Abs Immature Grans 0.05 10^3/uL (0.0-0.06); Absolute Basophil Count 0.01 10^3/uL (0.0-0.2); Absolute Eosinophil Count 0.08 10^3/uL (0.0-0.7); Absolute Neutrophil Count 6.64 10^3/uL (1.2-6.7); Basophils % 0.1; Eosinophils % 0.9; HGB 10.4 g/dL (11.2-15.7); Immature Grans % 0.6; Lymphocytes % 16.1; MCH 21.8 pg (27.0-33.0); MCHC 32.5 % (32.0-36.0); MCV 67 fL (80-95); MPV 10.4 fL (8.0-11.0); Monocytes % 5.8; Neutrophils % 76.5; Platelet Count 264 10^3/uL (130-400); RBC 4.77 10^6/uL (3.93-5.22); RDW 19.2 % (11.7-14.6); RDW-SD 44.5 fL; WBC 8.68 10^3/uL (4.4-10.8)
[2023-03-04 14:57] LABS: Diff Comment RBC Morph Reviewed; Microcytosis 2+
[2023-03-04 14:58] LABS: Glucose,1 Hr (Glucola) 176 mg/dL (80-140)
== END 2023-03-04 01:50 | disposition home or self-care (01) ==
LOC: LBO 01:49
PROVIDERS: PCP Urology; Visit Provider Obstetrics & Gynecology
DX: Z34.93 Encounter for supervision of normal pregnancy, unspecified, third trimester (principal); Z3A.28 28 weeks gestation of pregnancy
CPT/HCPCS: 36415; 82950; 85025

== ENCOUNTER 2023-03-15 02:41 | Outpatient (CLI) | payer MEDICAID, SELFPAY ==
[2023-03-15 09:17] LABS: Glucose 1 Hour 135 mg/dL
[2023-03-15 11:09] LABS: Glucose 3 Hour 91 mg/dL
== END 2023-03-15 02:42 | disposition home or self-care (01) ==
LOC: LBO 02:41
PROVIDERS: Obstetrics & Gynecology Gynecology; PCP Urology; Visit Provider Advanced Practice Midwife
DX: R73.09 Other abnormal glucose (principal)
CPT/HCPCS: 36415; 82951

== ENCOUNTER 2023-04-21 15:20 | Outpatient (REF) | payer MEDICAID, SELFPAY ==
[2023-04-21 18:22] LABS: *AMPHETAMINES SCREEN URINE Negative (Negative); *BARBITURATES SCREEN URINE Negative (Negative); *BENZODIAZEPINES SCREEN URINE Negative (Negative); Cannabinoids THC Negative (Negative); Cocaine Screen,Urine Negative (Negative); METHADONE URINE SCREEN Negative (Negative); OPIATES URINE SCREEN Negative (Negative)
[2023-04-21 18:23] LABS: Tricyclic Antidepressants Negative (Negative)
[2023-04-30 11:30] LABS: Buprenorphine Negative ng/mL (Cutoff: 5.0); Norbuprenorphine Negative ng/mL (Cutoff: 2.5)
== END 2023-04-21 15:21 | disposition home or self-care (01) ==
LOC: LBN 15:20
PROVIDERS: PCP Urology; Visit Provider Obstetrics & Gynecology Gynecology
DX: Z34.93 Encounter for supervision of normal pregnancy, unspecified, third trimester (principal); Z36.85 Encounter for antenatal screening for Streptococcus B; Z3A.35 35 weeks gestation of pregnancy
CPT/HCPCS: 80307; 80348; 87081

== ENCOUNTER 2023-05-24 07:41 | Inpatient (IN) | payer MEDICAID, SELFPAY ==
[2023-05-24] VITALS (43 sets, daily range): BP systolic 117–171; BP diastolic 63–108; PULSE 53–85; RESP 16–18; TEMP 36.6–36.9; O2SAT 96–99
--- NOTE | 2023-05-24 08:36 | W.PM.OBHPL1 ---
Date of service: 05/24/23 Time of Service: 08:36 Assessment and Plan Assessment and plan (1) Group B streptococcal infection during : Status: Acute (2) Encounter for induction of labor: Status: Acute OB-HPI Labor/Delivery History of Present Illness Reason for Visit: IUP 40w3d EGA Chief Complaint: Scheduled Induction of Labor Indication for Induction: Other. SUDARSHAN Calculator Estimated Delivery Date Method Current WG Current Estimate 05/21/23 Ultrasound #1 40w 3d Other Estimates 05/10/23 LMP (Certain) 42w 0d History of Present Expected Delivery Route/Plan - MD care FOB/ - Gurwinder Corea (4th child together) Specific Issues/Plan 1. ?BMI 35 - early GTT normal - elevated 28wk 1hr - normal 3hr GTT 2. Karlie and partner decline covid vaccine. Had covid? 06/2020 3. 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 irregular heart rate and reported history of chest pain - referral to cardiology at [facility] 6a. Cardiology normal EKG no evidence of cardiac issue, musculoskeletal source of pain per MD, no follow up needed. 5. Tandem Nursing Assessment: History Reviewed & Current Informed Consent Informed Consent: Induction of Labor Review of Systems All systems reviewed & are unremarkable except as noted in HPI and below Constitutional Constitutional: Reports difficulty sleeping and Reports fatigue Genitourinary Comments: Active fetus. Unsure about position Musculoskeletal Musculoskeletal: Reports myalgias Integumentary/Breasts Skin/Breast: Reports system reviewed and no additional complaints, except as documented Neurologic Neurologic: Reports system reviewed and no additional complaints, except as documented Psychiatric Psychiatric: Reports system reviewed and no additional complaints, except as documented Endocrine Endocrine: Reports fatigue PFSH All Active Problems (Updated 05/24/23 @ 08:49 by Michelle Walls MD) Encounter for induction of labor (Acute) Group B streptococcal infection during (Acute) Elevated glucose tolerance test (Acute) 03/04/2023 1 hour Glucola 176. 3-hour glucose tolerance test has been ordered. Chronic chest pain (Acute) BMI 35.0-35.9,adult (Acute) (Acute) Medical History 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 Pt's mother and MGM also carry gene. Pt's eval for trait and was negative. Family History Father Migraines, neuralgic Sister Seizures Delta thalassemia Maternal Aunt Bone cancer Delta thalassemia Mother Delta thalassemia Social History (Updated 05/24/23 @ 08:47 by Michelle Walls MD) Smoking/Tobacco Use Status: Never Second Hand Exposure: No Smoking risk assessment performed?: Yes Alcohol Intake: former Drug use: Never Substance use type: does not use Adopted: No Foster care: No Household members: spouse and other Details: Gurwinder Aguayo and Андрей Nato Number of Children: 3 current occupation: Homemaker Do you think of yourself as: straight/heterosexual Current gender identity: female What is your relationship status?: Panel score (0-1 are the most socially isolated patients): 1 Miriam/Mosque: temple Seatbelt use: always Helmet use: Yes Drive intox or ride w/intox limb driver: No Water heater temp set <120 deg: Yes Working smoke detector in home: Yes Fire extinguisher in home: Yes Carbon monox detector in home: Yes Firearms in home: No Do you feel safe at home: Yes Do you feel safe in your relationship?: Yes Victim of physical abuse: No Victim of emotional abuse: No Victim of sexual abuse: No Female Reproductive History Menstrual control method: natural family planning History History 3 Para 3 Hx # Term Pregnancies 3 Multiple births 0 Hx # Pregnancies 0 Ectopic pregnancies 0 AB induced 0 Hx Number of Living Children 3 AB spontaneous 0 Past Pregnancies Del. Date GA/Weeks # Preg Succ Route Wgt Sex Labor Lgth Anesthesia Location Prov Complic 03/21/18 41 vaginal 8 lb 2 oz Male Michele 11/25/19 40 No vaginal 7 lb 8 oz Male 7 hours AOC 07/04/21 40 No vaginal 7 lb 4 oz Female 1 hour 46 min. MD Noah Delivery Date: 03/21/18 Last Updated by: Brook Christine CNM IOL for postdates. Olivier. Dr. Bautista Delivery Date: 11/25/19 Last Updated by: Fay Hurst Delivery Date: 07/04/21 Last Updated by: Brook Christine CNM Induced; elective due to maternal discomfort debby Meds Allergies and Home Medications Allergies Allergy/AdvReac Type Severity Reaction Status Date / Time tree and shrub pollen Allergy Mild Verified 05/19/23 14:18 Home Medications Medication Instructions Recorded Confirmed Type vit,calcium 93-ferrous 1 ea PO DAILY 09/02/17 05/12/23 History fum 9 mg iron-folic acid 267 mg tablet ( Formula) omega-3 fatty acids-fish oil 340 1 ea PO DAILY 11/17/17 05/12/23 History mg-1,000 mg capsule (Fish Oil) ascorbic acid (vitamin C) 500 mg 500 mg PO DAILY 06/14/19 05/12/23 History tablet (Vitamin C) ferrous sulfate 325 mg (65 mg 325 mg PO DAILY #30 tabs 08/31/19 05/12/23 Rx iron) tablet (Feosol) cholecalciferol (vitamin D3) 125 125 mcg PO DAILY 12/23/20 05/12/23 History mcg (5,000 unit) capsule calcium carb-magnesium carb 250 1 tab PO DAILY 05/29/21 05/12/23 History mg-300 mg tablet Exam Physical Exam Vital signs: Temp Pulse Resp BP Pulse Ox 98.3 F 67 18 125/80 98 05/24/23 07:53 05/24/23 08:04 05/24/23 07:50 05/24/23 07:50 05/24/23 08:04 Vital Signs Reviewed: Yes Narrative: Pt presents for IOL at term. Fetus is active and per pt reports can be transverse. No leaking fluid. She reports occasional uterine contractions. Constitutional Constitutional: no acute distress Detailed Labor and Delivery Exam Dilation: 0 Effacement (%): 50 station: -3 Position: OA Cervix position: mid Consistency: soft Martinez Score: Cervical Points Exam 0 1 2 3 Dilation Closed 1-2cm 3-4 cm 5-6cm Effacement 0-30% 40-50% 60-70% 80% Consistency Firm Medium Soft Station -3 -2 -1,0 +1,+2 Position Posterior Mid Anterior MARTINEZ Score(Cervical Ripeness Score): 3 Monitor Mode: External Contraction Duration(sec): occasional Contraction Intensity: Mild Fetus A Heart Rate Baseline: 150 Monitor Accelerations: 15 X 15 Monitor Decelerations: None Variability: Moderate (6-25 BPM) Presentation: Cephalic (confirmed by bedside u/s) Categories: Category I Est. Weight: 7 lb 14.986 oz HEENT Exam HEENT Exam: Normal Neck Exam Neck Exam: Normal Chest/Brest/Axilla Exam Chest Exam: Not Done Breast Exam Breast Exam: Not Done Respiratory Exam Respiratory Exam: Normal Cardiovascular Exam Cardiovascular Exam: Normal Abdominal Exam Abdominal Exam: Normal Rectal Exam Rectal Exam: Not Done Exam Exam: Normal Extremities Exam Extremities Exam: Normal Back/Spine/Pelvis Exam Back Exam: Normal Pelvis Adequate: Yes Skin Exam Skin Exam: Normal Neurological Exam Neurological Exam: Normal Psychiatric Exam Psychiatric Exam: Normal Results Results Group Beta Strep: Positive Blood Type: O+ Rubella Status: Immune Varicella Immunity: Immune Risk Assessment Risk for Shoulder Dystocia Historical/Initial OB: NEGATIVE FOR: Pelvic Abnormality, Pre- BMI>30, Previous Shoulder Dystocia or Previous Macrosomia 36 Weeks: NEGATIVE FOR: Current Gestational DM, EFW>4500gms or Maternal Weight Gain>40lbs 40 Weeks: NEGATIVE FOR: EFW> 4500 gms, Maternal Weight Gain >40lb or Post Dates Risk for Pre-Eclampsia Daily Dose ASA Indicated: No Yes, if one or more: NEGATIVE FOR: Hx Pre-E/Gest HTN, Chronic HTN, Multiple Gestation, Pre-gestational DM, Renal Disease, Systemic Lupus or APA Syndrome Yes, if 2 or more: POSITIVE FOR: BMI>30; NEGATIVE FOR: Nulliparity, Age>= 35 yrs, >10yr btwn pregnancies, ethinicty, Mother/Sister w/ Pre-E or Previous IUGR Risk for Post- Hemorrhage Initial: NEGATIVE FOR: Multiple Gestation, Previous PPH, Known Clotting Deficiency, Grand Multiparity or Anticoagulation 36 Weeks: NEGATIVE FOR: Anemia, hgb<10, Low platelets(thrombocytopenia), Gestational HTN or Pre-E, Polyhydraminios or EFW>4500gms At Risk?: No Risks Reviewed Risks Reviewed Upon Admission: Yes (aoc)
[2023-05-24 08:43] LABS: HCT 35.2 % (36.0-46.0); HGB 11.4 g/dL (11.2-15.7); MCH 22.1 pg (27.0-33.0); MCHC 32.4 % (32.0-36.0); MPV 11.2 fL (8.0-11.0); Platelet Count 251 10^3/uL (130-400); RBC 5.15 10^6/uL (3.93-5.22); RDW-SD 44.3 fL; WBC 9.75 10^3/uL (4.4-10.8)
[2023-05-24] MEDS: Lactated Ringers 1,000 ML 125 ML IV (09:08)
[2023-05-24] MEDS: Penicillin G POT. 5,000,000 UNITS in Normal Saline 100 ML 200 UNITS IVPB (09:09)
[2023-05-24] MEDS: Oxytocin/Normal Saline 30 UNIT/500 ML BAG 2 UNITS IV (09:15)
[2023-05-24 09:18] LABS: MCV 68 fL (80-95)
--- NOTE | 2023-05-24 10:47 | W.PM.OBNL1 ---
Date of service: 05/24/23 Time of Service: 10:47 Informed Consent Informed Consent: Induction of Labor Pelvic Exam Comments: VE deferred. Assessment and Plan Assessment and plan (1) Encounter for induction of labor: Status: Acute (2) Group B streptococcal infection during : Status: Acute (3) : Status: Acute Objective Abnormal lab results 05/24/23 Range/Units 08:35 Hct 35.2 L (36.0-46.0) % MCV 68 L (80-95) fL MCH 22.1 L (27.0-33.0) pg RDW 19.0 H (11.7-14.6) % MPV 11.2 H (8.0-11.0) fL Temp Pulse Resp BP Pulse Ox 98.3 F 81 16 125/80 98 05/24/23 07:53 05/24/23 10:42 05/24/23 08:32 05/24/23 08:32 05/24/23 10:42 Laboratory Results WBC 9.75 10^3/uL (4.4-10.8) 05/24/23 08:35 RBC 5.15 10^6/uL (3.93-5.22) 05/24/23 08:35 Hgb 11.4 g/dL (11.2-15.7) 05/24/23 08:35 Hct 35.2 % (36.0-46.0) L 05/24/23 08:35 MCV 68 fL (80-95) L 05/24/23 08:35 MCH 22.1 pg (27.0-33.0) L 05/24/23 08:35 MCHC 32.4 % (32.0-36.0) 05/24/23 08:35 RDW 19.0 % (11.7-14.6) H 05/24/23 08:35 Plt Count 251 10^3/uL (130-400) 05/24/23 08:35 MPV 11.2 fL (8.0-11.0) H 05/24/23 08:35 Patient ABO/Rh O Positive 05/24/23 08:35 Antibody Screen NEGATIVE 05/24/23 08:35 Results Hemoglobin/Hematocrit: Hgb 11.4 g/dL (11.2-15.7) 09/26/23 08:35 Hct 35.2 % (36.0-46.0) L 05/24/23 08:35 Abnormal Lab Findings: Abnormal Labs 05/24/23 08:35 Hct 35.2 L MCV 68 L MCH 22.1 L RDW 19.0 H MPV 11.2 H
[2023-05-24] MEDS: Penicillin G POT. 3,000,000 UNITS in Normal Saline 50 ML 100 UNITS IVPB (12:56)
--- NOTE | 2023-05-24 14:01 | W.PM.OBNL1 ---
Date of service: 05/24/23 Time of Service: 14:01 Informed Consent Informed Consent: Induction of Labor Pelvic Exam Dilation: 2 Effacement (%): 50 station: -2 Position: OA Cervix Position: mid Consistency: soft Vaginal Exam Presentation: Cephalic Contractions Monitor Mode: External Contraction Frequency(min): Every 2 to 3-minute Contraction Duration(sec): 60 Intensity: Mild/Moderate Fetus A Monitor: External (US) Heart Rate Baseline: 12 Variability: Moderate (6-25 BPM) Categories: Category II FHR Rhythm: Regular Characteristics: Normal Accelerations: 15 X 15 Decelerations: Variable Recurrence: Episodic Amniotic Membrane Status: Ruptured Rupture Method: Artifical Amniotic Fluid: Clear Date of Membrane Rupture: 05/24/23 Time of Membrane Rupture: 13:11 Assessment Note: Unclear regarding heart rate baseline. Cyst rupture membranes was performed and scalp electrode placed. Category 1 strip noted. Oxytocin remains at 10 milliunits/min. We will continue to follow. Patient has been receiving Assessment and Plan Assessment and plan (1) Group B streptococcal infection during : Status: Acute (2) Encounter for induction of labor: Status: Acute Objective Abnormal lab results 05/24/23 Range/Units 08:35 Hct 35.2 L (36.0-46.0) % MCV 68 L (80-95) fL MCH 22.1 L (27.0-33.0) pg RDW 19.0 H (11.7-14.6) % MPV 11.2 H (8.0-11.0) fL Temp Pulse Resp BP Pulse Ox 98.2 F 59 L 16 135/89 98 05/24/23 13:00 05/24/23 11:42 05/24/23 08:32 05/24/23 11:42 05/24/23 11:42 Laboratory Results WBC 9.75 10^3/uL (4.4-10.8) 05/24/23 08:35 RBC 5.15 10^6/uL (3.93-5.22) 05/24/23 08:35 Hgb 11.4 g/dL (11.2-15.7) 05/24/23 08:35 Hct 35.2 % (36.0-46.0) L 05/24/23 08:35 MCV 68 fL (80-95) L 05/24/23 08:35 MCH 22.1 pg (27.0-33.0) L 05/24/23 08:35 MCHC 32.4 % (32.0-36.0) 05/24/23 08:35 RDW 19.0 % (11.7-14.6) H 05/24/23 08:35 Plt Count 251 10^3/uL (130-400) 05/24/23 08:35 MPV 11.2 fL (8.0-11.0) H 05/24/23 08:35 Patient ABO/Rh O Positive 05/24/23 08:35 Antibody Screen NEGATIVE 05/24/23 08:35 Subjective Patient Reports: New Complaints (Feeling contractions-more uncomfortable) Interventions Induction Indication: Other, Type of Induction: Artifical Rupture of Membranes and Pitocin, Results Hemoglobin/Hematocrit: Hgb 11.4 g/dL (11.2-15.7) 05/24/23 08:35 Hct 35.2 % (36.0-46.0) L 05/24/23 08:35 Abnormal Lab Findings: Abnormal Labs 05/24/23 08:35 Hct 35.2 L MCV 68 L MCH 22.1 L RDW 19.0 H MPV 11.2 H
--- NOTE | 2023-05-24 14:30 | W.PM.OBNL1 ---
Date of service: 05/24/23 Time of Service: 14:30 Informed Consent Informed Consent: Induction of Labor Pelvic Exam Dilation: 5 Effacement (%): 100 station: -2 Position: OA Cervix Position: posterior Consistency: soft Vaginal Exam Presentation: Cephalic Contractions Monitor Mode: External Contraction Frequency(min): Q2 Contraction Duration(sec): 60 Intensity: Moderate Fetus A Monitor: Internal (FSE) Heart Rate Baseline: 130 Presentation: Cephalic Variability: Moderate (6-25 BPM) Categories: Category I FHR Rhythm: Regular Characteristics: Normal Accelerations: 15 X 15 Decelerations: None Amniotic Membrane Status: Ruptured Assessment and Plan Assessment and plan (1) Encounter for induction of labor: Status: Acute Assessment and plan: Patient progressing in labor. Reassuring heart rate tracing (2) Group B streptococcal infection during : Status: Acute Assessment and plan: She has received GBS penicillin prophylaxis. Objective Abnormal lab results 05/24/23 Range/Units 08:35 Hct 35.2 L (36.0-46.0) % MCV 68 L (80-95) fL MCH 22.1 L (27.0-33.0) pg RDW 19.0 H (11.7-14.6) % MPV 11.2 H (8.0-11.0) fL Temp Pulse Resp BP Pulse Ox 98.2 F 59 L 16 135/89 98 05/24/23 13:00 05/24/23 11:42 05/24/23 08:32 05/24/23 11:42 05/24/23 11:42 Laboratory Results WBC 9.75 10^3/uL (4.4-10.8) 05/24/23 08:35 RBC 5.15 10^6/uL (3.93-5.22) 05/24/23 08:35 Hgb 11.4 g/dL (11.2-15.7) 05/24/23 08:35 Hct 35.2 % (36.0-46.0) L 05/24/23 08:35 MCV 68 fL (80-95) L 05/24/23 08:35 MCH 22.1 pg (27.0-33.0) L 05/24/23 08:35 MCHC 32.4 % (32.0-36.0) 05/24/23 08:35 RDW 19.0 % (11.7-14.6) H 05/24/23 08:35 Plt Count 251 10^3/uL (130-400) 05/24/23 08:35 MPV 11.2 fL (8.0-11.0) H 05/24/23 08:35 Patient ABO/Rh O Positive 05/24/23 08:35 Antibody Screen NEGATIVE 05/24/23 08:35 Subjective Patient Reports: New Complaints (Feeling more uncomfortable slightly more pressure nauseated) Results Hemoglobin/Hematocrit: Hgb 11.4 g/dL (11.2-15.7) 05/24/23 08:35 Hct 35.2 % (36.0-46.0) L 05/24/23 08:35 Abnormal Lab Findings: Abnormal Labs 05/24/23 08:35 Hct 35.2 L MCV 68 L MCH 22.1 L RDW 19.0 H MPV 11.2 H
[2023-05-24] MEDS: Acetaminophen 325 MG TAB 650 MG PO (18:01)
[2023-05-24] MEDS: Ibuprofen 600 MG TAB PO (18:01)
--- NOTE | 2023-05-24 18:39 | W.OBDELIVERY ---
Date of service: 05/24/23 Time of Service: 18:39 OB Labor/ Delivery Information Baby A Delivery Delivery Method: Spontaneaous Presentation: Cephalic Cephalic Position: Vertex Breech Position: N/A Cord Description-Baby A: 3 Vessels Cord Description Comment: eccentric insertion Amniotic Fluid: Clear Estimated Blood Loss: 100 Delivery Outcome: Liveborn Infant Transferred: Remains with Mother Providers Doctor: Michelle Walls Nurse: Candida Maravilla Nurse: Cassidy Joyce Other: Candida Hummel Labor/Delivery Information Number of Babies in Womb: 1 Steroids Given: None Reason Steroids Not Administered: N/A Group Beta Strep: Positive Antibiotics Administered: Yes Number of Doses of Antibiotics: 2 Rubella Status: Immune Blood Type: O+ Varicella Immunity: Immune Medication in Delivery: pitocin post delivery rate Born En Route: No Maternal Complications: None Shoulder Dystocia: No Note: Intact perineum. will be named Sam Corea. Stages of Labor Onset of Labor Date: 05/24/23 Onset of Labor Time: 09:00 Complete Dilatation Date: 05/24/23 Complete Dilatation Time: 16:03 Labor - Stage 1 Duration: 7 hours and 3 minutes ROM Baby A: 05/24/23 ROM Baby A: 12:45 ROM Total Time- Baby A: [id number] Infant Delivery Date-Baby A: 05/24/23 Delivery Time-Baby A: 16:15 Labor Stage 2 Duration: 12 minutes Placenta Delivery Date-Baby A: 05/24/23 Placenta Delivery Time-Baby A: 16:29 Labor-Stage 3 Duration: 14 minutes Total Length of Labor-Baby A: 7 hours and 15 minutes Placenta Cultured: No Placenta Status: Delivered Placenta Status: Delivered (Intact with normal configuration) Baby A Infant Gender: Male Gestational Status: Term (39-41.6 wks) Gestational Age in Weeks/Days: 40 Weeks and 3 Days Length-Baby A: 19.69 in Score-1 Minute Interval(Baby A) Heart Rate-1 minute: 100 BPM or Greater Respiratory Effort- 1 minute: Spontaneous/Strong Cry Muscle Tone-1 minute: Active Movement Reflex Response-1 minute: Prompt Response Color-1 minute: Pallor or Cyanosis Total Score-1 minute: 8 Score-5 Minute Interval(Baby A) Heart Rate- 5 minute: 100 BPM or Greater Respiratory Effort-5 minute: Spontaneous/Strong Cry Muscle Tone-5 minute: Active Movement Reflex Response-5 minute: Prompt Response Color-5 minute: Bluish Hands or Feet Total Score- 5 minute: 9 Interventions Induction Indication: Post Date (multip ), Type of Induction: Pitocin rate at(mU/min): 10 max rate at time of delivery. .,
[2023-05-25] MEDS: Dibucaine 1% 28 GM TUBE TP (02:36)
[2023-05-25] MEDS: Hamamelis Leaf/Glycerin 100 EACH BOX PR (02:37)
[2023-05-25] MEDS: Ibuprofen 600 MG TAB PO ×4 (02:37→23:41)
[2023-05-25] MEDS: Acetaminophen 325 MG TAB 650 MG PO ×5 (02:37→23:41)
[2023-05-25 07:46] VITALS: BP 120/76; PULSE 84; RESP 16; TEMP 36.6; O2SAT 100
--- NOTE | 2023-05-25 09:44 | OBPPV_ITS ---
Date of service: 05/25/23 Time of Service: 09:44 Assessment and Plan Assessment and plan (1) Vaginal delivery: Status: Inactive Assessment and plan: PPD1 at 40w 3d EGA. Pt breast feeding well. Minimal lochia rubra. Uterine contraction discomfort treated with NSAIDs and Acetaminophen. No need for Percocet. Pt has requested that she be discharged to home in am. Will continue to support in (2) Group B streptococcal infection during : Status: Acute Assessment and plan: Pt had two doses of PCN during labor. Subjective Subjective Interval history: PPD1 over intact perineum after IOL for postdates in multip. Patient comments: Pain well controlled (with NSAIDs) Patient's Mood: Good. Would like to be discharged home tomorrow. baby status: Doing well, Nursing well and Strong Bonding Observed [place] feeding status: Exclusively breast feeding Exam Physical Exam Vital signs: Temp Pulse Resp BP Pulse Ox 97.9 F 84 16 120/76 100 05/25/23 07:46 05/25/23 07:46 05/25/23 07:46 05/25/23 07:46 05/25/23 07:46 Vital Signs Reviewed: Yes Constitutional Constitutional: no acute distress Neck Exam Neck Exam: Normal Respiratory Exam Respiratory Exam: Normal Cardiovascular Exam Cardiovascular Exam: Normal Abdominal Exam Comments: no focal uterine tenderness. Fundal Exam Fundus: Below Umbilicus Rectal Exam Rectal Exam: Not Done Extremities Exam Extremity Exam: Normal Back/Spine/Pelvis Exam Back Exam: Normal Skin Exam Skin Exam: Normal Neurological Exam Neurological Exam: Normal Psychiatric Exam Psychiatric Exam: Normal Results Hemoglobin/Hematocrit: Hgb 11.4 g/dL (11.2-15.7) 05/24/23 08:35 Hct 35.2 % (36.0-46.0) L 05/24/23 08:35 Abnormal Lab Findings: Abnormal Labs 05/24/23 08:35 Hct 35.2 L MCV 68 L MCH 22.1 L RDW 19.0 H MPV 11.2 H
[2023-05-25 16:58] VITALS: BP 122/80; PULSE 71; RESP 18; TEMP 36.8; O2SAT 97
[2023-05-25 20:33] VITALS: BP 114/71; PULSE 69; RESP 18; TEMP 36.7; O2SAT 97
[2023-05-26] MEDS: Acetaminophen 325 MG TAB 650 MG PO (07:02)
[2023-05-26] MEDS: Ibuprofen 600 MG TAB PO (07:03)
--- NOTE | 2023-05-26 07:52 | W.PM.OBPNV1 ---
Date of service: 05/26/23 Time of Service: 07:52 Assessment and Plan Assessment and plan (1) (normal spontaneous vaginal delivery): Status: Inactive Assessment and plan: day #2 status postnormal spontaneous vaginal delivery. Doing well. Discharge home today. All questions answered. Circumcision performed 05/25/2023. Subjective Subjective Interval history: Patient seen and examined this morning. Doing well. Pain well controlled. Lochia is physiologic. baby status: Doing well, Nursing well and Strong Bonding Observed Exam Physical Exam Vital signs: Temp Pulse Resp BP Pulse Ox 98.1 F 69 18 114/71 97 05/25/23 20:33 05/25/23 20:33 05/25/23 20:33 05/25/23 20:33 05/25/23 20:33 Vital Signs Reviewed: Yes Constitutional Constitutional: no acute distress HEENT Exam HEENT Exam: Normal Neck Exam Neck Exam: Normal Cardiovascular Exam Cardiovascular Exam: Normal Abdominal Exam Comments: Soft nontender Fundal Exam Fundus: Below Umbilicus and Firm Extremities Exam Extremity Exam: Normal; negative Calf Tenderness Skin Exam Skin Exam: Normal Neurological Exam Neurological Exam: Normal Psychiatric Exam Psychiatric Exam: Normal Results Hemoglobin/Hematocrit: Hgb 11.4 g/dL (11.2-15.7) 05/24/23 08:35 Hct 35.2 % (36.0-46.0) L 05/24/23 08:35 Abnormal Lab Findings: Abnormal Labs 05/24/23 08:35 Hct 35.2 L MCV 68 L MCH 22.1 L RDW 19.0 H MPV 11.2 H
--- NOTE | 2023-05-26 07:56 | DSE_ITS ---
Date of service: 05/26/23 Time of Service: 07:57 DS: Diagnosis Discharge Diagnosis (1) (normal spontaneous vaginal delivery): Status: Inactive Asessment and Plan: day #2 status postnormal spontaneous vaginal delivery after labor induction at term. Doing well. No significant issues or concerns. Follow-up in the office in 2 and 6 weeks. Natural family planning for contraception. Discharge Plan Disposition Patient Disposition: Home Condition: Good Discharge Details Reason For Visit: IUP 40w3d EGA Admit Date/Time: 05/24/23 08:26 Admit Provider: Michelle Walls Attending Provider: Michelle Walls Primary Care Provider: Spencer Adkins Hospital Course Hospital Course: Patient was admitted on 05/24/2023 for labor induction at term. She had an uncomplicated vaginal delivery and delivered a viable male infant. She had uncomplicated course and was discharged home day #2 ambulating, tolerating regular diet and oral pain medication with stable vital signs. She is breast-feeding her without difficulty. Her baby was circumcised on 05/25/2023. Follow-up will be in the office in 2 and 6 weeks. Home Meds and New Rx's Prescriptions: No Action cholecalciferol (vitamin D3) 125 mcg (5,000 unit) capsule 125 mcg PO DAILY calcium carb-magnesium carb 250-300 mg tablet 1 tab PO DAILY ferrous sulfate [Feosol] 325 mg (65 mg iron) tablet 325 mg PO DAILY Qty: 30 4RF Formula 1 EACH tablet 1 ea PO DAILY Fish Oil 1 EACH capsule 1 ea PO DAILY ascorbic acid (vitamin C) [Vitamin C] 500 mg tablet 500 mg PO DAILY Discharge Instructions Stand Alone Forms: BC Instructions, BC Post Vaginal Deliver Activity:: Pelvic rest for 6 weeks Equipment/Supplies:: No Equipment Needed Diet:: As Tolerated Discharge Orders Discharge Orders: Discharge Order (Routine); Ordered 05/26/23 Ordered By: Carmen Antoine OB:DS Summary Summary Vaginal Delivery Method: Spontaneaous Episiotomy Description: None Laceration Description: None Laceration Extension: N/A Contraception Discussed Contraception Discussed: Yes Contraceptive Plan: Not planning to use, Infant Gender-Baby A: Male Status at Discharge Functional status at discharge: independent ambulation Overall status at discharge: patient is back to baseline Mental Status: mental status grossly normal Speech and Movement: speech and movement normal Mood: congruent mood Affect: normal affect Exam Physical Exam Vital signs: Temp Pulse Resp BP Pulse Ox 98.1 F 69 18 114/71 97 05/25/23 20:33 05/25/23 20:33 05/25/23 20:33 05/25/23 20:33 05/25/23 20:33 Narrative: See physical exam from progress note dated 05/26/2023 [facility] All Active Problems (Updated 05/26/23 @ 07:54 by Carmen Antoine DO) Encounter for induction of labor (Acute) Group B streptococcal infection during (Acute) Elevated glucose tolerance test (Acute) 03/04/2023 1 hour Glucola 176. 3-hour glucose tolerance test has been ordered. 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 Pt's mother and MGM also carry gene. Pt's eval for trait and was negative. Positive test Continue PNV, Healthy PN LS changes advised. Dating US next week First OB appt scheduled. RTC sooner for any problem or concerns. Family History Father Migraines, neuralgic Sister Seizures Delta thalassemia Maternal Aunt Bone cancer Delta thalassemia Mother Delta thalassemia Social History (Updated 05/24/23 @ 08:47 by Michelle Walls MD) Smoking/Tobacco Use Status: Never Second Hand Exposure: No Smoking risk assessment performed?: Yes Alcohol Intake: former Drug use: Never Substance use type: does not use Adopted: No Foster care: No Household members: spouse and other Details: Gurwinder Aguayo and Андрей Dutton Housing: house Number of Children: 3 current occupation: Homemaker Do you think of yourself as: straight/heterosexual Current gender identity: female What is your relationship status?: Panel score (0-1 are the most socially isolated patients): 1 Miriam/Samaritan: episcopalian Seatbelt use: always Helmet use: Yes Drive intox or ride w/intox tractor driver teamster: No Water heater temp set <120 deg: Yes Working smoke detector in home: Yes Fire extinguisher in home: Yes Carbon monox detector in home: Yes Firearms in home: No Do you feel safe at home: Yes Do you feel safe in your relationship?: Yes Victim of physical abuse: No Victim of emotional abuse: No Victim of sexual abuse: No Female Reproductive History Menstrual control method: natural family planning History History 3 Para 3 Hx # Term Pregnancies 3 Multiple births 0 Hx # Pregnancies 0 Ectopic pregnancies 0 AB induced 0 Hx Number of Living Children 3 AB spontaneous 0 Past Pregnancies Del. Date GA/Weeks # Preg Succ Route Wgt Sex Labor Lgth Anesth esia Location Prov Complic 03/21/18 41 vaginal 8 lb 2 oz Male [place] 11/25/19 40 No vaginal 7 lb 8 oz Male 7 hours AOC 07/04/21 40 No vaginal 7 lb 4 oz Female 1 hour 46 min. MD Noah Delivery Date: 03/21/18 Last Updated by: Brook Christine CNM IOL for postdates. Olivier. Dr. Bautista Delivery Date: 11/25/19 Last Updated by: Fay Hurst Delivery Date: 07/04/21 Last Updated by: Brook Christine CNM Induced; elective due to maternal discomfort debby DS: Data Vitals/I&O Vitals and I&O: Vital Signs Temperature 98.1 F 05/25/23 20:33 Temperature Source Oral 05/25/23 20:33 Pulse 69 05/25/23 20:33 Pulse Rhythm Regular 05/25/23 20:33 Respiratory Rate 18 05/25/23 20:33 Blood Pressure 114/71 05/25/23 20:33 Blood Pressure Mean 85 05/25/23 20:33 Pulse Oximetry 97 05/25/23 20:33 Oxygen Delivery Method Room Air 05/24/23 08:32 Oxygen Flow Rate 0 05/24/23 08:32 Pain Level 3 05/26/23 07:03 Comment breathing through strong contractions providing support at the bedside 05/24/23 15:16 Intake & Output 05/25/23 05/25/23 05/26/23 11:59 23:59 11:59 Other: Urine Color Yellow Yellow
[2023-05-26 08:28] VITALS: BP 123/76; PULSE 85; RESP 18; TEMP 36.6; O2SAT 97
== END 2023-05-26 12:00 | disposition home or self-care (01) | DRG 806 ==
PROVIDERS: Admitting Provider Obstetrics & Gynecology Gynecology; PCP Urology; Visit Provider Obstetrics & Gynecology Gynecology
DX: O99.12 Other diseases of the blood and blood-forming organs and certain disorders involving the immune mechanism complicating childbirth (principal); O98.82 Other maternal infectious and parasitic diseases complicating childbirth; Z37.0 Single live birth; Z3A.40 40 weeks gestation of pregnancy; D56.3 Thalassemia minor; B95.1 Streptococcus, group B, as the cause of diseases classified elsewhere
CPT/HCPCS: 36415; 85027; 86850; 86900; 86901; J2540

== ENCOUNTER 2024-11-16 00:23 | Outpatient (CLI) | payer MEDICAID, SELFPAY ==
[2024-11-16 16:20] LABS: Abs Immature Grans 0.03 10^3/uL (0.0-0.06); Absolute Basophil Count 0.01 10^3/uL (0.0-0.2); Absolute Eosinophil Count 0.08 10^3/uL (0.0-0.7); Absolute Lymphocyte Count 1.63 10^3/uL (1.2-3.4); Absolute Monocyte Count 0.43 10^3/uL (0.1-0.8); Basophils % 0.1 %; HCT 35.6 % (36.0-46.0); HGB 11.2 g/dL (11.2-15.7); Immature Grans % 0.4 %; Lymphocytes % 19.9 %; MCH 20.9 pg (27.0-33.0); MCHC 31.5 % (32.0-36.0); MCV 66 fL (80-95); Monocytes % 5.3 %; Neutrophils % 73.3 %; Platelet Count 281 10^3/uL (130-400); RBC 5.37 10^6/uL (3.93-5.22); RDW 20.6 % (11.7-14.6); WBC 8.18 10^3/uL (4.4-10.8)
[2024-11-16 16:26] LABS: Hemoglobin A1C 4.7 % (<5.7)
[2024-11-16 16:59] LABS: Anisocytosis 1+; Diff Comment RBC Morph Reviewed; Microcytosis 2+
[2024-11-19 11:10] LABS: HIV-1/2 Ag & Ab Screen Negative (Negative)
[2024-11-19 11:54] LABS: Hepatitis B Surface Ag Negative (Negative)
[2024-11-19 12:40] LABS: Rubella IgG Ab (UVM) Positive (See Note); Varicella IgG Antibody Positive (See Note)
[2024-11-19 12:41] LABS: Hepatitis C Ab w Rflx HCV PCR Negative (Negative)
[2024-11-20 20:04] LABS: Syphilis IgG w/Reflex Nonreactive (Nonreactive)
[2024-12-04 14:57] LABS: Result Summary NEGATIVE; Specimen WB Whole Blood
== END 2024-11-16 00:24 | disposition home or self-care (01) ==
LOC: LBO 00:23
PROVIDERS: PCP Urology; Visit Provider Advanced Practice Midwife
DX: Z34.91 Encounter for supervision of normal pregnancy, unspecified, first trimester (principal)
CPT/HCPCS: 36415; 81220; 81222; 86787; 86803; 86850; 86900; 86901; 87340; 87389; 83036; 85025; 86762; 86780

== ENCOUNTER 2024-11-16 15:52 | Outpatient (REF) | payer MEDICAID, SELFPAY ==
[2024-11-19 12:25] LABS: Chlamydia Result Negative (Negative); GC Result Negative (Negative)
== END 2024-11-16 15:53 | disposition home or self-care (01) ==
LOC: LBN 15:52
PROVIDERS: PCP Urology; Visit Provider Advanced Practice Midwife
DX: Z34.91 Encounter for supervision of normal pregnancy, unspecified, first trimester (principal); Z3A.13 13 weeks gestation of pregnancy
CPT/HCPCS: 87491; 87591; 87086

== ENCOUNTER 2025-02-22 16:00 | Outpatient (CLI) | payer MEDICAID, SELFPAY ==
[2025-02-22 17:11] LABS: HCT 33.7 % (36.0-46.0); HGB 10.6 g/dL (11.2-15.7); MCH 21.5 pg (27.0-33.0); MCHC 31.5 % (32.0-36.0); MPV 10.5 fL (8.0-11.0); Platelet Count 271 10^3/uL (130-400); RBC 4.92 10^6/uL (3.93-5.22); RDW 18.9 % (11.7-14.6); RDW-SD 45.4 fL; WBC 9.03 10^3/uL (4.4-10.8)
[2025-02-22 17:34] LABS: MCV 69 fL (80-95)
[2025-02-22 17:39] LABS: Glucose,1 Hr (Glucola) 166 mg/dL (80-140)
[2025-02-22 17:45] LABS: Iron 40 ug/dL (50-170)
[2025-02-22 18:11] LABS: Vitamin B12 394 pg/mL (193-986)
[2025-02-22 18:15] LABS: Folate > 20.0 ng/mL (8.6-20.0)
== END 2025-02-22 16:01 | disposition home or self-care (01) ==
LOC: LBO 16:01
PROVIDERS: PCP Urology; Visit Provider Obstetrics & Gynecology
DX: Z34.93 Encounter for supervision of normal pregnancy, unspecified, third trimester (principal)
CPT/HCPCS: 36415; 82950; 85027; 82607; 82746; 83540

== ENCOUNTER 2025-03-08 01:05 | Outpatient (CLI) | payer MEDICAID, SELFPAY ==
[2025-03-07 10:21] LABS: Glucose 1 Hour 120 mg/dL
== END 2025-03-08 01:06 | disposition home or self-care (01) ==
LOC: LBO 01:06
PROVIDERS: PCP Urology; Visit Provider Obstetrics & Gynecology
DX: Z34.93 Encounter for supervision of normal pregnancy, unspecified, third trimester (principal); R73.09 Other abnormal glucose
CPT/HCPCS: 36415; 82951

== ENCOUNTER 2025-04-23 17:57 | Outpatient (REF) | payer MEDICAID, SELFPAY | END 2025-04-23 17:58 | disposition home or self-care (01) | LOC: LBN 17:57 | PROVIDERS: PCP Urology; Visit Provider Obstetrics & Gynecology | DX: Z34.93 Encounter for supervision of normal pregnancy, unspecified, third trimester (principal) | CPT/HCPCS: 87081 ==

== ENCOUNTER 2025-05-21 10:33 | Inpatient (IN) | payer MEDICAID, SELFPAY ==
[2025-05-21] VITALS (22 sets, daily range): BP systolic 130–152; BP diastolic 72–97; PULSE 67–98; RESP 16–18; TEMP 36.8–36.9; O2SAT 96–99
[2025-05-21 11:04] LABS: HCT 38.2 % (36.0-46.0); HGB 12.4 g/dL (11.2-15.7); MCH 21.6 pg (27.0-33.0); MCHC 32.5 % (32.0-36.0); MPV 10.5 fL (8.0-11.0); Platelet Count 291 10^3/uL (130-400); RBC 5.73 10^6/uL (3.93-5.22); RDW 19.5 % (11.7-14.6); RDW-SD 43.0 fL; WBC 11.65 10^3/uL (4.4-10.8)
[2025-05-21] MEDS: miSOPROStol 25 MCG TAB PO ×2 (11:06→15:16)
[2025-05-21] MEDS: Penicillin G POT. 5,000,000 UNITS in Normal Saline 100 ML 200 UNITS IVPB (11:08)
[2025-05-21] MEDS: Lactated Ringers 1,000 ML 200 ML IV (11:08)
[2025-05-21 11:21] LABS: MCV 67 fL (80-95)
--- NOTE | 2025-05-21 12:57 | HPE_ITS ---
Date of service: 05/21/25 Time of Service: 09:00 Assessment and Plan Assessment and plan (1) 40 weeks gestation of : Status: Acute Assessment and plan: 30 yo ( x4) at 40 0/7 as dated by LMP equal to 9 wk US (SUDARSHAN: 05/21/2025) presents for IOL - Rh+ / Rub I / VZV I / GBS positive - complicated by obesity, GBS positive, delta-beta thalassemia trait (FOB neg) - Intrapartum course currently uncomplicated - Plans to - Contraception counseling pending - IOL with Cook catheter and PO 25 mcg cytotec q4 - - - - - - - - - - - - - - - 05/21/2025 at 0900 ([facility]): SVE 1-2 / thick / high; patient was extensively counseled on induction options, and she expresses interest in Cook catheter with Cytotec. Orders were placed for initiation of GBS prophylaxis. Materials to be collected for Cook catheter placement. 05/21/2025 at 1200 ([facility]): Patient was found resting in her bed comfortably. She had recieved one dose of PCN and PO cytotec had been initiated. Patient was counseled on steps of the procedure and what to expect with the Cook catheter. All questions were answered to the patient's satisfaction and she was consented for Cook catheter placement. Sterile saline was collected steriley and set aside. The cook catheter balloons were inflated and completed deflated. Patient was positioned into McRobert's with feet in foot rests, and copious gel was applied to the tip of the cook. The cook was introduced to the cervix via palpation until it was appreciated to have passed the cervix. The stylet was removed, and 20 cc's of sterile saline was applied to the uterine balloon, which was then carefully seated along the internal os. 20 cc's was then instilled in the vaginal balloon, and appropriate placement was confirmed. We then progressively increased the fluid in each balloon by 10 cc's until the patient reported some discomfort, which resulted in 40 cc's in each balloon. Patient tolerated the procedure well. 05/21/2025 at 1400 ([facility]): Patient requesting removal of some of the fluid from the catheter balloons given notable discomfort. 10 cc's removed from each balloon (for a remaining total of 30 cc's in each balloon) and she reported feeling better. Cook still firmly in place. - - - - - - - - - - - - - - - (2) Positive GBS test: Status: Acute OB-HPI Labor/Delivery History of Present Illness Reason for Visit: Induction Chief Complaint: Scheduled Induction of Labor Indication for Induction: Other. SUDARSHAN Calculator Estimated Delivery Date Method Current WG Current Estimate 05/21/25 LMP (Certain) 40w 0d Other Estimates 05/23/25 Ultrasound #1 39w 5d History of Present Expected Delivery Route/Plan - FOB/ - Gurwinder Corea (5th child together) Specific Issues/Plan 1. BMI 35, HgbA1C: 4.7 2. Pt's nephew age 16 months born with cardiac anomalies 2a. [facility] level 2 and M consult 01/04. Level 2-nml 3. Elevated 1hr GTT - normal 3hr 4. Delta-beta thalassemia trait, is negative - Avoid over supplementation of iron. - Will check iron, B12 and folate with 28wk labs 5. GBS+ -ppx in labor Declines cfDNA screen, accepts CF carrier screen, CF neg PAP is due, pt declines, prefers to wait for Narrative: 30 yo ( x4) at 40 0/7 as dated by LMP equal to 9 wk US (SUDARSHAN 05/21/2025) presents for scheduled induction of labor. She reports good movement and denies vaginal bleeding or leakage. She denies any s/sx of pre- eclampsia. Review of Systems All systems reviewed & are unremarkable except as noted in HPI and below PFSH All Active Problems (Updated 05/21/25 @ 16:37 by Nu Benites DO) Positive GBS test (Acute) 40 weeks gestation of (Acute) BMI 35.0-35.9,adult (Acute) Delta-beta thalassemia trait (Acute) Pt is aware of Dx. Pt's mother and MGM also carry gene. Pt's eval for trait and was negative. Varicose veins during (Acute) (Acute) Family history of congenital heart defect (Acute) pt's nephew (sister's son), required reconstructive surgery Medical History (Updated 05/21/25 @ 16:37 by Nu Benites DO) Elevated glucose tolerance test 03/04/2023 1 hour Glucola 176. 3-hour glucose tolerance test has been ordered. Delayed menses Chronic chest pain Family History Father Migraines, neuralgic Sister Seizures Delta thalassemia Maternal Aunt Bone cancer Delta thalassemia Mother Delta thalassemia Social History Smoking/Tobacco Use Status: Never Second Hand Exposure: No Smoking risk assessment performed?: Yes Alcohol Intake: former Drug use: Never Substance use type: does not use Adopted: No Foster care: No Household members: spouse and other Details: Gurwinder Aguayo and Андрей Vargas Housing: house Number of Children: 4 current occupation: Homemaker Do you think of yourself as: straight/heterosexual Current gender identity: female What is your relationship status?: Panel score (0-1 are the most socially isolated patients): 1 Miriam/Moravian: gnosticist Seatbelt use: always Helmet use: Yes Drive intox or ride w/intox form setter/driver: No Water heater temp set <120 deg: Yes Working smoke detector in home: Yes Fire extinguisher in home: Yes Carbon monox detector in home: Yes Firearms in home: No Do you feel safe at home: Yes Do you feel safe in your relationship?: Yes Victim of physical abuse: No Victim of emotional abuse: No Victim of sexual abuse: No Female Reproductive History Menstrual control method: natural family planning History History 5 Para 4 Hx # Term Pregnancies 4 Multiple births 0 Hx # Pregnancies 0 Ectopic pregnancies 0 AB induced 0 Hx Number of Living Children 4 AB spontaneous 0 Past Pregnancies Del. Date GA/Weeks # Preg Succ Route Wgt Sex Labor Lgth Anesth esia Location Prov Complic 03/21/18 41 vaginal 8 lb 2 oz Male Michele 11/25/19 40 No vaginal 7 lb 8 oz Male 7 hours AOC 07/04/21 40 No vaginal 7 lb 4 oz Female 1 hour 46 min. MD Noah 05/24/23 40 No Yes vaginal 6 lb 12 oz Male Michelle Walls Delivery Date: 03/21/18 Last Updated by: Brook Christine CNM IOL for postdates. Olivier. Dr. Bautista Delivery Date: 11/25/19 Last Updated by: Sara Block&Андрей Foley Delivery Date: 07/04/21 Last Updated by: Brook Christine CNM Induced; elective due to maternal discomfort debby Delivery Date: 05/24/23 Last Updated by: Sara Block&Og, Sam Meds Allergies and Home Medications Allergies Allergy/AdvReac Type Severity Reaction Status Date / Time tree and shrub pollen Allergy Mild Unknown Verified 05/21/25 11:10 Home Medications ?Medication ?Instructions ?Recorded ?Confirmed ?Type vit,calcium 93-ferrous 1 ea PO DAILY 09/02/17 05/21/25 History fum 9 mg iron-folic acid 267 mg tablet ( Formula) omega-3 fatty acids-fish oil 340 1 ea PO DAILY 8 05/21/25 History mg-1,000 mg capsule (Fish Oil) ascorbic acid (vitamin C) 500 mg 500 mg PO DAILY 06/1405/21/25 History tablet (Vitamin C) ferrous sulfate 325 mg (65 mg 325 mg PO DAILY #30 tabs 08/31/19 05/21/25 Rx iron) tablet (Feosol) cholecalciferol (vitamin D3) 125 125 mcg PO DAILY 11/2805/21/25 History mcg (5,000 unit) capsule calcium carb-magnesium carb 250 1 tab PO DAILY 1 05/21/25 History mg-300 mg tablet Exam Physical Exam Vital signs: Temp Pulse Resp BP Pulse Ox 98.4 F 67 18 136/85 98 05/21/25 11:13 05/21/25 11:13 05/21/25 09:30 05/21/25 11:13 05/21/25 09:30 Narrative: general: Well nourished female in no immediate distress pulm: No overt respiratory distress abd: gravid, non-tender ext: +1 edema noted equally bilaterally psych: cooperative, appropriate Detailed Labor and Delivery Exam Dilation: 1.5 Effacement (%): 0 station: -4 Cervix position: posterior Consistency: medium Martinez Score: Cervical Points Exam 0 1 2 3 Dilation Closed 1-2cm 3-4 cm 5-6cm Effacement 0-30% 40-50% 60-70% 80% Consistency Firm Medium Soft Station -3 -2 -1,0 +1,+2 Position Posterior Mid Anterior MARTINEZ Score(Cervical Ripeness Score): 2 Amniotic Membrane Status: Intact Contraction Frequency(min): irregular; rare Contraction Intensity: Mild Comments: FHT category 1 Fetus A Heart Rate Baseline: 130 Monitor Accelerations: 15 X 15 Monitor Decelerations: None Variability: Moderate (6-25 BPM) Presentation: Cephalic Categories: Category I Est. Weight: 7 lb 8 oz Results Results Group Beta Strep: Positive Rubella Status: Immune Varicella Immunity: Immune Abnormal Lab Findings: Abnormal Labs 05/21/25 11:00 WBC 11.65 H RBC 5.73 H MCV 67 L MCH 21.6 L RDW 19.5 H Risk Assessment Risk for Shoulder Dystocia Historical/Initial OB: POSITIVE FOR: Pre- BMI>30; NEGATIVE FOR: Pelvic Abnormality, Previous Shoulder Dystocia or Previous Macrosomia Increased Risk?: No Risk for Pre-Eclampsia Daily Dose ASA Indicated: Yes Date Initiated/Initials: not indicated. JK Yes, if one or more: NEGATIVE FOR: Hx Pre-E/Gest HTN, Chronic HTN, Multiple Gestation, Pre-gestational DM, Renal Disease, Systemic Lupus or APA Syndrome Yes, if 2 or more: POSITIVE FOR: BMI>30; NEGATIVE FOR: Nulliparity, Age>= 35 yrs, >10yr btwn pregnancies, ethinicty, Mother/Sister w/ Pre-E or Previous IUGR Risk for Post- Hemorrhage Initial: NEGATIVE FOR: Multiple Gestation, Previous PPH, Known Clotting Deficiency, Grand Multiparity or Anticoagulation At Risk?: No Risks Reviewed Risks Reviewed Upon Admission: Yes
[2025-05-21] MEDS: Penicillin G POT. 3,000,000 UNITS in Normal Saline 50 ML 100 UNITS IVPB ×2 (15:16→19:30)
--- NOTE | 2025-05-21 18:51 | W.PM.OBNL1 ---
Date of service: 05/21/25 Time of Service: 18:51 Pelvic Exam Dilation: 2.5 Effacement (%): 40 station: -3 Cervix Position: posterior Consistency: soft Contractions Contraction Frequency(min): irregular Intensity: Mild Fetus A Monitor: External (US) Heart Rate Baseline: 130 Presentation: Cephalic Variability: Moderate (6-25 BPM) Categories: Category I FHR Rhythm: Regular Accelerations: 15 X 15 Amniotic Membrane Status: Intact Assessment and Plan Assessment and plan (1) 40 weeks gestation of : Status: Acute Assessment and plan: 30 yo ( x4) at 40 0/7 as dated by LMP equal to 9 wk US (SUDARSHAN: 05/21/2025) presents for IOL - Rh+ / Rub I / VZV I / GBS positive - complicated by obesity, GBS positive, delta-beta thalassemia trait (FOB neg) - Intrapartum course currently uncomplicated - Plans to - Contraception counseling pending - IOL with Cook catheter and PO 25 mcg cytotec q4 - - - - - - - - - - - - - - - 05/21/2025 at 0900 ([facility]): SVE 1-2 / thick / high; patient was extensively counseled on induction options, and she expresses interest in Cook catheter with Cytotec. Orders were placed for initiation of GBS prophylaxis. Materials to be collected for Cook catheter placement. 05/21/2025 at 1200 ([facility]): Patient was found resting in her bed comfortably. She had recieved one dose of PCN and PO cytotec had been initiated. Patient was counseled on steps of the procedure and what to expect with the Cook catheter. All questions were answered to the patient's satisfaction and she was consented for Cook catheter placement. Sterile saline was collected steriley and set aside. The cook catheter balloons were inflated and completed deflated. Patient was positioned into McRobert's with feet in foot rests, and copious gel was applied to the tip of the cook. The cook was introduced to the cervix via palpation until it was appreciated to have passed the cervix. The stylet was removed, and 20 cc's of sterile saline was applied to the uterine balloon, which was then carefully seated along the internal os. 20 cc's was then instilled in the vaginal balloon, and appropriate placement was confirmed. We then progressively increased the fluid in each balloon by 10 cc's until the patient reported some discomfort, which resulted in 40 cc's in each balloon. Patient tolerated the procedure well. [facility] Patient requesting removal of some of the fluid from the catheter balloons given notable discomfort. 10 cc's removed from each balloon (for a remaining total of 30 cc's in each balloon) and she reported feeling better. Cook still firmly in place. 05/21/2025 at 1830 ([facility]): Patient is found resting in her bed comfortably. Cook catheter recently fell out on its own. No bleeding or leakage. She is status post 2 doses of Cytotec and 2 doses of penicillin. SVE finds her to be 2 to 3 cm and soft though still thick and high. heart tones are category 1 and reassuring. Membranes remain intact. We will initiate Pitocin, and we discussed consideration of AROM pending secure application of the head to the cervix. Patient states that she is planning to avoid an epidural for now. Anticipate vaginal delivery. - - - - - - - - - - - - - - - (2) Positive GBS test: Status: Acute Objective Abnormal lab results 05/21/25 Range/Units 11:00 WBC 11.65 H (4.4-10.8) 10^3/uL RBC 5.73 H (3.93-5.22) 10^6/uL MCV 67 L (80-95) fL MCH 21.6 L (27.0-33.0) pg RDW 19.5 H (11.7-14.6) % Temp Pulse Resp BP Pulse Ox 98.4 F 97 H 18 138/84 98 05/21/25 14:16 05/21/25 18:31 05/21/25 16:12 05/21/25 18:27 05/21/25 18:31 Laboratory Results WBC 11.65 10^3/uL (4.4-10.8) H 05/21/25 11:00 RBC 5.73 10^6/uL (3.93-5.22) H 05/21/25 11:00 Hgb 12.4 g/dL (11.2-15.7) 05/21/25 11:00 Hct 38.2 % (36.0-46.0) 05/21/25 11:00 MCV 67 fL (80-95) L 05/21/25 11:00 MCH 21.6 pg (27.0-33.0) L 05/21/25 11:00 MCHC 32.5 % (32.0-36.0) 05/21/25 11:00 RDW 19.5 % (11.7-14.6) H 05/21/25 11:00 Plt Count 291 10^3/uL (130-400) 05/21/25 11:00 MPV 10.5 fL (8.0-11.0) 05/21/25 11:00 ABO/Rh O Positive 05/21/25 11:00 Antibody Screen NEGATIVE 05/21/25 11:00 Objective Narrative Objective Narrative: General: Well nourished female resting comfortably Pulm: No overt respiratory distress Abd: Gravid, non-tender Ext: +1 edema noted equally bilaterally Affect: Calm, cooperative Results Hemoglobin/Hematocrit: Hgb 12.4 g/dL (11.2-15.7) 05/21/25 11:00 Hct 38.2 % (36.0-46.0) 05/21/25 11:00 Abnormal Lab Findings: Abnormal Labs 05/21/25 11:00 WBC 11.65 H RBC 5.73 H MCV 67 L MCH 21.6 L RDW 19.5 H
[2025-05-21] MEDS: Oxytocin/Normal Saline 30 UNIT/500 ML BAG 2 UNITS IV (19:30)
[2025-05-21] MEDS: Normal Saline Flush 10 ML SYR IVP (19:33)
--- NOTE | 2025-05-21 21:19 | W.PM.OBNL1 ---
Date of service: 05/21/25 Time of Service: 21:19 Pelvic Exam Dilation: 4.5 Effacement (%): 50 station: -3 Cervix Position: posterior Consistency: soft BISHOPS Score(Cervical Ripeness Score): 5 Vaginal Exam Presentation: Cephalic Contractions Monitor Mode: External Contraction Frequency(min): q2-3 Intensity: Mild/Moderate Fetus A Monitor: External (US) Heart Rate Baseline: 130 Presentation: Cephalic Variability: Moderate (6-25 BPM) Categories: Category I FHR Rhythm: Regular Accelerations: 15 X 15 Decelerations: None Amniotic Membrane Status: Ruptured Assessment and Plan Assessment and plan (1) 40 weeks gestation of : Status: Acute Assessment and plan: 30 yo ( x4) at 40 0/7 as dated by LMP equal to 9 wk US (SUDARSHAN: 05/21/2025) presents for IOL - Rh+ / Rub I / VZV I / GBS positive - complicated by obesity, GBS positive, delta-beta thalassemia trait (FOB neg) - Intrapartum course currently uncomplicated - Plans to - Contraception counseling pending - IOL with Cook catheter and PO 25 mcg cytotec q4 - - - - - - - - - - - - - - - 05/21/2025 at 0900 ([facility]): SVE 1-2 / thick / high; patient was extensively counseled on induction options, and she expresses interest in Cook catheter with Cytotec. Orders were placed for initiation of GBS prophylaxis. Materials to be collected for Cook catheter placement. 05/21/2025 at 1200 ([facility]): Patient was found resting in her bed comfortably. She had recieved one dose of PCN and PO cytotec had been initiated. Patient was counseled on steps of the procedure and what to expect with the Cook catheter. All questions were answered to the patient's satisfaction and she was consented for Cook catheter placement. Sterile saline was collected steriley and set aside. The cook catheter balloons were inflated and completed deflated. Patient was positioned into McRobert's with feet in foot rests, and copious gel was applied to the tip of the cook. The cook was introduced to the cervix via palpation until it was appreciated to have passed the cervix. The stylet was removed, and 20 cc's of sterile saline was applied to the uterine balloon, which was then carefully seated along the internal os. 20 cc's was then instilled in the vaginal balloon, and appropriate placement was confirmed. We then progressively increased the fluid in each balloon by 10 cc's until the patient reported some discomfort, which resulted in 40 cc's in each balloon. Patient tolerated the procedure well. 05/21/2025 at 1400 ([facility]): Patient requesting removal of some of the fluid from the catheter balloons given notable discomfort. 10 cc's removed from each balloon (for a remaining total of 30 cc's in each balloon) and she reported feeling better. Cook still firmly in place. 05/21/2025 at 1830 ([facility]): Patient is found resting in her bed comfortably. Cook catheter recently fell out on its own. No bleeding or leakage. She is status post 2 doses of Cytotec and 2 doses of penicillin. SVE finds her to be 2 to 3 cm and soft though still thick and high. heart tones are category 1 and reassuring. Membranes remain intact. We will initiate Pitocin, and we discussed consideration of AROM pending secure application of the head to the cervix. Patient states that she is planning to avoid an epidural for now. Anticipate vaginal delivery. 05/21/2025 at 2115 [facility] Patient is found resting in bed; she is looking modestly more uncomfortable with her contractions and she does report she is feeling them. FHT category 1, contractions q 2-3 minutes with Pitocin at 6. SVE 4-5 / 50-60 / -3 / soft / posterior. AROM@2114-scant, clear fluid. AROM achieved using amniohook while RN provided gentle fundal pressure. SVE following AROM assured good application of head to the cervix. Anticipate vaginal delivery. - - - - - - - - - - - - - - - Objective Abnormal lab results 05/21/25 Range/Units 11:00 WBC 11.65 H (4.4-10.8) 10^3/uL RBC 5.73 H (3.93-5.22) 10^6/uL MCV 67 L (80-95) fL MCH 21.6 L (27.0-33.0) pg RDW 19.5 H (11.7-14.6) % Temp Pulse Resp BP Pulse Ox 98.3 F 67 16 130/75 98 05/21/25 21:18 05/21/25 19:34 05/21/25 19:35 05/21/25 19:34 05/21/25 18:31 Laboratory Results WBC 11.65 10^3/uL (4.4-10.8) H 05/21/25 11:00 RBC 5.73 10^6/uL (3.93-5.22) H 05/21/25 11:00 Hgb 12.4 g/dL (11.2-15.7) 05/21/25 11:00 Hct 38.2 % (36.0-46.0) 05/21/25 11:00 MCV 67 fL (80-95) L 05/21/25 11:00 MCH 21.6 pg (27.0-33.0) L 05/21/25 11:00 MCHC 32.5 % (32.0-36.0) 05/21/25 11:00 RDW 19.5 % (11.7-14.6) H 05/21/25 11:00 Plt Count 291 10^3/uL (130-400) 05/21/25 11:00 MPV 10.5 fL (8.0-11.0) 05/21/25 11:00 ABO/Rh O Positive 05/21/25 11:00 Antibody Screen NEGATIVE 05/21/25 11:00 Results Hemoglobin/Hematocrit: Hgb 12.4 g/dL (11.2-15.7) 05/21/25 11:00 Hct 38.2 % (36.0-46.0) 05/21/25 11:00 Abnormal Lab Findings: Abnormal Labs 05/21/25 11:00 WBC 11.65 H RBC 5.73 H MCV 67 L MCH 21.6 L RDW 19.5 H
--- NOTE | 2025-05-21 22:13 | W.PM.OBNL1 ---
Date of service: 05/21/25 Time of Service: 22:13 Assessment and Plan Assessment and plan (1) 40 weeks gestation of : Status: Acute Assessment and plan: 30 yo ( x4) at 40 0/7 as dated by LMP equal to 9 wk US (SUDARSHAN: 05/21/2025) presents for IOL - Rh+ / Rub I / VZV I / GBS positive - complicated by obesity, GBS positive, delta-beta thalassemia trait (FOB neg) - Intrapartum course currently uncomplicated - Plans to - Contraception counseling pending - IOL with Cook catheter and PO 25 mcg cytotec q4 - - - - - - - - - - - - - - - 05/21/2025 at 0900 ([facility]): SVE 1-2 / thick / high; patient was extensively counseled on induction options, and she expresses interest in Cook catheter with Cytotec. Orders were placed for initiation of GBS prophylaxis. Materials to be collected for Cook catheter placement. 05/21/2025 at 1200 ([facility]): Patient was found resting in her bed comfortably. She had recieved one dose of PCN and PO cytotec had been initiated. Patient was counseled on steps of the procedure and what to expect with the Cook catheter. All questions were answered to the patient's satisfaction and she was consented for Cook catheter placement. Sterile saline was collected steriley and set aside. The cook catheter balloons were inflated and completed deflated. Patient was positioned into McRobert's with feet in foot rests, and copious gel was applied to the tip of the cook. The cook was introduced to the cervix via palpation until it was appreciated to have passed the cervix. The stylet was removed, and 20 cc's of sterile saline was applied to the uterine balloon, which was then carefully seated along the internal os. 20 cc's was then instilled in the vaginal balloon, and appropriate placement was confirmed. We then progressively increased the fluid in each balloon by 10 cc's until the patient reported some discomfort, which resulted in 40 cc's in each balloon. Patient tolerated the procedure well. 05/21/2025 at 1400 ([facility]): Patient requesting removal of some of the fluid from the catheter balloons given notable discomfort. 10 cc's removed from each balloon (for a remaining total of 30 cc's in each balloon) and she reported feeling better. Cook still firmly in place. 05/21/2025 at 1830 ([facility]): Patient is found resting in her bed comfortably. Cook catheter recently fell out on its own. No bleeding or leakage. She is status post 2 doses of Cytotec and 2 doses of penicillin. SVE finds her to be 2 to 3 cm and soft though still thick and high. heart tones are category 1 and reassuring. Membranes remain intact. We will initiate Pitocin, and we discussed consideration of AROM pending secure application of the head to the cervix. Patient states that she is planning to avoid an epidural for now. Anticipate vaginal delivery. 05/21/2025 at 2115 ([facility]): Patient is found resting in bed; she is looking modestly more uncomfortable with her contractions and she does report she is feeling them. FHT category 1, contractions q 2-3 minutes with Pitocin at 6. SVE 4-5 / 50-60 / -3 / soft / posterior. AROM@2114-scant, clear fluid. AROM achieved using amniohook while RN provided gentle fundal pressure. SVE following AROM assured good application of head to the cervix. Anticipate vaginal delivery. 05/21/2025 at 2200 ([facility]): Patient is growing visibly uncomfortable and she is feeling increasing pressure. She called out complaining of some light-headedness. Vitals are stable. SVE is limited by body position (patient sitting straight up), but not yet fully dilated; head is about 0 station. No blood or concerning discharge on glove. She is noted to be moderately hyperventilating with her contractions. Provided with a blue bag and encouraged to breath in and out of the bag for a couple breaths with each contraction. She continues to decline anything for pain control. Continue to anticipate vaginal delivery. - - - - - - - - - - - - - - - Objective Abnormal lab results 05/21/25 Range/Units 11:00 WBC 11.65 H (4.4-10.8) 10^3/uL RBC 5.73 H (3.93-5.22) 10^6/uL MCV 67 L (80-95) fL MCH 21.6 L (27.0-33.0) pg RDW 19.5 H (11.7-14.6) % Temp Pulse Resp BP Pulse Ox 98.3 F 71 16 139/97 H 98 05/21/25 21:18 05/21/25 22:06 05/21/25 19:35 05/21/25 22:06 05/21/25 18:31 Laboratory Results WBC 11.65 10^3/uL (4.4-10.8) H 05/21/25 11:00 RBC 5.73 10^6/uL (3.93-5.22) H 05/21/25 11:00 Hgb 12.4 g/dL (11.2-15.7) 05/21/25 11:00 Hct 38.2 % (36.0-46.0) 05/21/25 11:00 MCV 67 fL (80-95) L 05/21/25 11:00 MCH 21.6 pg (27.0-33.0) L 05/21/25 11:00 MCHC 32.5 % (32.0-36.0) 05/21/25 11:00 RDW 19.5 % (11.7-14.6) H 05/21/25 11:00 Plt Count 291 10^3/uL (130-400) 05/21/25 11:00 MPV 10.5 fL (8.0-11.0) 05/21/25 11:00 ABO/Rh O Positive 05/21/25 11:00 Antibody Screen NEGATIVE 05/21/25 11:00 Results Hemoglobin/Hematocrit: Hgb 12.4 g/dL (11.2-15.7) 05/21/25 11:00 Hct 38.2 % (36.0-46.0) 05/21/25 11:00 Abnormal Lab Findings: Abnormal Labs 05/21/25 11:00 WBC 11.65 H RBC 5.73 H MCV 67 L MCH 21.6 L RDW 19.5 H
--- NOTE | 2025-05-21 22:57 | W.OBDELIVERY ---
Date of service: 05/21/25 Time of Service: 22:58 OB Labor/ Delivery Information Baby A Delivery Delivery Method: Spontaneaous Presentation: Cephalic Cephalic Position: Vertex Vertex Position: Right Occipital Anterior Amniotic Fluid: Clear Quantitative Blood Loss: 200 cc's Delivery Outcome: Liveborn Providers Doctor: Nu Benites Nurse: Violet Jarrell Nurse: Areli Dey Labor/Delivery Information Number of Babies in Womb: 1 Steroids Given: None Reason Steroids Not Administered: N/A Group Beta Strep: Positive Antibiotics Administered: Yes Number of Doses of Antibiotics: 2 Rubella Status: Immune Varicella Immunity: Immune Shoulder Dystocia: No Stages of Labor Onset of Labor Date: 05/21/25 Complete Dilatation Date: 05/21/25 ROM Baby A: 05/21/25 ROM Baby A: 21:15 Infant Delivery Date-Baby A: 05/21/25 Delivery Time-Baby A: 22:41 Placenta Delivery Date-Baby A: 05/21/25 Placenta Delivery Time-Baby A: 22:48 Labor-Stage 3 Duration: 7 minutes Placenta Status: Delivered Baby A Gender: Male Gestational Status: Term (39-41.6 wks) Gestational Age in Weeks/Days: 40 Weeks and 0 Days Length-Baby A: 19.69 in Score-1 Minute Interval(Baby A) Heart Rate-1 minute: 100 BPM or Greater Respiratory Effort- 1 minute: Spontaneous/Strong Cry Muscle Tone-1 minute: Active Movement Reflex Response-1 minute: Prompt Response Color-1 minute: Bluish Hands or Feet Total Score-1 minute: 9 Score-5 Minute Interval(Baby A) Heart Rate- 5 minute: 100 BPM or Greater Respiratory Effort-5 minute: Spontaneous/Strong Cry Muscle Tone-5 minute: Active Movement Reflex Response-5 minute: Prompt Response Color-5 minute: Bluish Hands or Feet Total Score- 5 minute: 9 Note: 30 yo G5 now [id number] underwent a successful 40 week spontaneous vaginal delivery to a viable baby boy (?) over an intact perineum WITHOUT epidural anesthesia. Patient presented to the floor on the morning of 05/21/2025 for scheduled induction of labor. She was induced with PO cytotec and a Cook catheter. After the Cook catheter fell out, she was augmented with Pitocin. Her water was broken to clear fluid and she delivered within three hours of her water being broken. I was called to the room when the patient felt the urge to push. The bed was broken down and a second stage huddle was performed. Within 15 minutes of initiating pushing, she delivered the head in SHARRON without issue. A loose nuchal was noted but the patient delivered the rest of the body through it before it could be reduced. The baby was immediately vigorous; the mouth was bulb suctioned, and the baby was then placed onto the maternal abdomen. Delayed cord clamping was observed. The cord was then double clamped and cut by the father of the baby under the guidance of the physician. A section of cord was then collected and set aside in the event of the need for gases. Cord blood was then collected. Pitocin was then initiated and the placenta delivered without issue within 15 minutes of delivery. A careful exam of the vulva and vagina found no evidence of laceration. QBL 200 cc's. The mother and baby tolerated the procedure well. All counts were correct x2.
[2025-05-21] MEDS: Acetaminophen 325 MG TAB 650 MG PO (23:25)
[2025-05-21] MEDS: Ibuprofen 600 MG TAB PO (23:25)
[2025-05-22] VITALS (11 sets, daily range): BP systolic 116–147; BP diastolic 68–95; PULSE 64–82; RESP 16–18; TEMP 36.3–36.9; O2SAT 96–98
[2025-05-22 00:19] LABS: HCT 37.9 % (36.0-46.0); HGB 12.3 g/dL (11.2-15.7); MCH 21.5 pg (27.0-33.0); MCHC 32.5 % (32.0-36.0); MCV 66 fL (80-95); MPV 10.7 fL (8.0-11.0); Platelet Count 303 10^3/uL (130-400); RBC 5.71 10^6/uL (3.93-5.22); RDW 19.4 % (11.7-14.6); RDW-SD 43.1 fL; WBC 18.20 10^3/uL (4.4-10.8)
[2025-05-22 00:28] LABS: ALT 19 U/L (14-59); AST 19 U/L (15-37); Albumin 2.9 g/dL (3.4-5.0); Alkaline Phosphatase 172 U/L (46-116); Anion Gap 12.9 mmol/L (3-11); BUN 11 mg/dL (7-18); Bilirubin, Total 0.5 mg/dL (0.2-1.0); CO2 21.1 mmol/L (21.0-32.0); Calcium 9.6 mg/dL (8.5-10.1); Chloride 103 mmol/L (98-107); Estimated GFR 100.96 (mL/min/1.73m2); Glucose 119 mg/dL (74-106); Potassium 4.0 mmol/L (3.5-5.1); Sodium 137 mmol/L (136-145); Total Protein 6.4 g/dL (6.4-8.2)
[2025-05-22] MEDS: Hamamelis Leaf/Glycerin 100 EACH BOX PR (00:31)
[2025-05-22] MEDS: Dibucaine 1% 28 GM TUBE TP (00:31)
[2025-05-22] MEDS: Acetaminophen 325 MG TAB 650 MG PO ×3 (06:10→19:34)
[2025-05-22] MEDS: Ibuprofen 600 MG TAB PO ×3 (06:10→19:34)
--- NOTE | 2025-05-22 10:30 | OBPPV_ITS ---
Date of service: 05/22/25 Time of Service: 10:30 Assessment and Plan Assessment and plan (1) 40 weeks gestation of : Status: Acute Assessment and plan: 30 yo ( x4) at 40 0/7 as dated by LMP equal to 9 wk US (SUDARSHAN: 05/21/2025); s/p 40 - Rh+ / Rub I / VZV I / GBS positive - complicated by obesity, GBS positive, delta-beta thalassemia trait (FOB neg) - Intrapartum course complicated by gestational HTN (labs WNL) - course uncomplicated - Plans to - Contraception declined; PNV encouraged - Counseled on depression - Pap smear at visit - IOL with Cook catheter and PO 25 mcg cytotec q4 - - - - - - - - - - - - - - - 05/21/2025 at 0900 ([facility]): SVE 1-2 / thick / high; patient was extensively counseled on induction options, and she expresses interest in Cook catheter with Cytotec. Orders were placed for initiation of GBS prophylaxis. Materials to be collected for Cook catheter placement. 05/21/2025 at 1200 ([facility]): Patient was found resting in her bed comfortably. She had recieved one dose of PCN and PO cytotec had been initiated. Patient was counseled on steps of the procedure and what to expect with the Cook catheter. All questions were answered to the patient's satisfaction and she was consented for Cook catheter placement. Sterile saline was collected steriley and set aside. The cook catheter balloons were inflated and completed deflated. Patient was positioned into McRobert's with feet in foot rests, and copious gel was applied to the tip of the cook. The cook was introduced to the cervix via palpation until it was appreciated to have passed the cervix. The stylet was removed, and 20 cc's of sterile saline was applied to the uterine balloon, which was then carefully seated along the internal os. 20 cc's was then instilled in the vaginal balloon, and appropriate placement was confirmed. We then progressively increased the fluid in each balloon by 10 cc's until the patient reported some discomfort, which resulted in 40 cc's in each balloon. Patient tolerated the procedure well. 05/21/2025 at 1400 ([facility]): Patient requesting removal of some of the fluid from the catheter balloons given notable discomfort. 10 cc's removed from each balloon (for a remaining total of 30 cc's in each balloon) and she reported feeling better. Cook still firmly in place. 05/21/2025 at 1830 ([facility]): Patient is found resting in her bed comfortably. Cook catheter recently fell out on its own. No bleeding or leakage. She is status post 2 doses of Cytotec and 2 doses of penicillin. SVE finds her to be 2 to 3 cm and soft though still thick and high. heart tones are category 1 and reassuring. Membranes remain intact. We will initiate Pitocin, and we discussed consideration of AROM pending secure application of the head to the cervix. Patient states that she is planning to avoid an epidural for now. Anticipate vaginal delivery. 05/21/2025 at 2115 ([facility]): Patient is found resting in bed; she is looking modestly more uncomfortable with her contractions and she does report she is feeling them. FHT category 1, contractions q 2-3 minutes with Pitocin at 6. SVE 4-5 / 50-60 / -3 / soft / posterior. AROM@2114-scant, clear fluid. AROM achieved using amniohook while RN provided gentle fundal pressure. SVE following AROM assured good application of head to the cervix. Anticipate vaginal delivery. 05/21/2025 at 2200 ([facility]): Patient is growing visibly uncomfortable and she is feeling increasing pressure. She called out complaining of some light- headedness. Vitals are stable. SVE is limited by body position (patient sitting straight up), but not yet fully dilated; head is about 0 station. No blood or concerning discharge on glove. She is noted to be moderately hyperventilating with her contractions. Provided with a blue bag and encouraged to breath in and out of the bag for a couple breaths with each contraction. She continues to decline anything for pain control. Continue to anticipate vaginal delivery. 05/22/2025 AM ([facility]): Patient is found doing well. She is eating, ambulating, and urinating all without issue. Her pain is modest. Her lochia is apporpriate. She declines contraception and verbalizes understanding of her options. We discussed depression and its associated symptoms; she w as encouraged to have a low threshold for letting us know if there are concerns. We discussed the importance of 6 weeks of pelvic rest. She is without issue. Blood pressures remain modestly elevated, though she continues to deny symptoms of pre-eclampsia. - - - - - - - - - - - - - - - Exam Physical Exam Vital signs: Temp Pulse Resp BP Pulse Ox 98.3 F 80 18 123/73 96 05/22/25 19:45 05/22/25 19:45 05/22/25 19:45 05/22/25 19:45 05/22/25 19:45 Narrative: general: well, nourished female in no immediate distress pulm: No overt respiratory distress abd: soft, non-distended, non-tender. fundus firm and low ext: trace edema noted eaully bilaterally affect: cooperative, appropriate Results Hemoglobin/Hematocrit: Hgb 12.3 g/dL (11.2-15.7) 05/21/25 23:58 Hct 37.9 % (36.0-46.0) 05/21/25 23:58 Abnormal Lab Findings: Abnormal Labs 05/21/25 05/21/25 11:00 23:58 WBC 11.65 H 18.20 H RBC 5.73 H 5.71 H MCV 67 L 66 L MCH 21.6 L 21.5 L RDW 19.5 H 19.4 H Anion Gap 12.9 H Glucose 119 H Alkaline Phosphatase 172 H Albumin 2.9 L
[2025-05-22] MEDS: Docusate Sodium 100 MG CAP PO (19:44)
[2025-05-23] MEDS: Acetaminophen 325 MG TAB 650 MG PO ×2 (04:34→08:45)
[2025-05-23] MEDS: Ibuprofen 600 MG TAB PO ×2 (04:34→10:23)
[2025-05-23 08:30] VITALS: BP 119/78; PULSE 87; RESP 16; TEMP 36.6
--- NOTE | 2025-05-23 08:47 | W.PM.OBPNV1 ---
Date of service: 05/23/25 Time of Service: 08:48 Assessment and Plan Assessment and plan (1) care and examination immediately after delivery: Status: Acute Assessment and plan: Pt is a now PPD#2 s/p uncomplicated NVD. She reports that she is doing well and ready for d/c. Due to elevated BPs in the 12hrs following delivery she will return to the office for a BP check early next week. Discharge instructions were reviewed, as well as reasons to call, including fever, increasing bleeding or pain that persists with rest, s/s of ppd, s/s of DVT. They plan abstinence for contraception. Subjective Subjective Narrative: Pt is ppd#2 s/p NVD of healthy baby boy. She is doing well. Minimal bleeding. No significant pain. Tolerating PO diet without difficulty. Nursing going pretty well. She did have some mildly elevated BPs for the first 12hrs after delivery. They have been normal range since. She had normal labs and denies any sxms. Exam Physical Exam Vital signs: Temp Pulse Resp BP Pulse Ox 97.9 F 87 16 119/78 96 05/23/25 08:30 05/23/25 08:30 05/23/25 08:30 05/23/25 08:30 05/22/25 19:45 Vital Signs Reviewed: Yes Constitutional Constitutional: no acute distress and cooperative Detailed HEENT Exam Head: Present normocephalic and atraumatic Respiratory Exam Respiratory Exam: Normal Abdominal Exam Abdomen: Tender (mildly) Fundal Exam Fundus: Below Umbilicus and Firm Extremities Exam Extremity Exam: negative Calf Tenderness or Edema Detailed Neurological Exam Neurological: Present alert, oriented X3 and CN II-XII intact Results Hemoglobin/Hematocrit: Hgb 12.3 g/dL (11.2-15.7) 05/21/25 23:58 Hct 37.9 % (36.0-46.0) 05/21/25 23:58 Abnormal Lab Findings: Abnormal Labs 05/21/25 05/21/25 11:00 23:58 WBC 11.65 H 18.20 H RBC 5.73 H 5.71 H MCV 67 L 66 L MCH 21.6 L 21.5 L RDW 19.5 H 19.4 H Anion Gap 12.9 H Glucose 119 H Alkaline Phosphatase 172 H Albumin 2.9 L
[2025-05-23 10:23] VITALS: TEMP 36.5
--- NOTE | 2025-05-23 15:37 | DSE_ITS ---
Date of service: 05/23/25 Time of Service: 09:00 DS: Diagnosis Discharge Diagnosis (1) care and examination immediately after delivery: Status: Acute Asessment and Plan: See d/c instructions. F/u visit 1wk. Discharge Plan Disposition Patient Disposition: Home Condition: Good Discharge Details Reason For Visit: Induction Admit Date/Time: 05/21/25 10:33 Admit Provider: Nu Benites Attending Provider: Nu Benites Primary Care Provider: Spencer Adkins Hospital Course Hospital Course: 30 yo ( x4) at 40 0/7 as dated by LMP equal to 9 wk US (SUDARSHAN: 05/21/2025); s/p 40 - Rh+ / Rub I / VZV I / GBS positive - complicated by obesity, GBS positive, delta-beta thalassemia trait (FOB neg) - Intrapartum course complicated by gestational HTN (labs WNL) - course uncomplicated - Plans to - Contraception declined; PNV encouraged - Counseled on depression - Pap smear at visit - IOL with Cook catheter and PO 25 mcg cytotec q4 - - - - - - - - - - - - - - - 05/21/2025 at 0900 ([facility]): SVE 1-2 / thick / high; patient was extensively counseled on induction options, and she expresses interest in Cook catheter with Cytotec. Orders were placed for initiation of GBS prophylaxis. Materials to be collected for Cook catheter placement. 05/21/2025 at 1200 ([facility]): Patient was found resting in her bed comfortably. She had recieved one dose of PCN and PO cytotec had been initiated. Patient was counseled on steps of the procedure and what to expect with the Cook catheter. All questions were answered to the patient's satisfaction and she was consented for Cook catheter placement. Sterile saline was collected steriley and set aside. The cook catheter balloons were inflated and completed deflated. Patient was positioned into McRobert's with feet in foot rests, and copious gel was applied to the tip of the cook. The cook was introduced to the cervix via palpation until it was appreciated to have passed the cervix. The stylet was removed, and 20 cc's of sterile saline was applied to the uterine balloon, which was then carefully seated along the internal os. 20 cc's was then instilled in the vaginal balloon, and appropriate placement was confirmed. We then progressively increased the fluid in each balloon by 10 cc's until the patient reported some discomfort, which resulted in 40 cc's in each balloon. Patient tolerated the procedure well. 05/21/2025 at 1400 ([facility]): Patient requesting removal of some of the fluid from the catheter balloons given notable discomfort. 10 cc's removed from each balloon (for a remaining total of 30 cc's in each balloon) and she reported feeling better. Cook still firmly in place. 05/21/2025 at 1830 ([facility]): Patient is found resting in her bed comfortably. Cook catheter recently fell out on its own. No bleeding or leakage. She is status post 2 doses of Cytotec and 2 doses of penicillin. SVE finds her to be 2 to 3 cm and soft though still thick and high. heart tones are category 1 and reassuring. Membranes remain intact. We will initiate Pitocin, and we discussed consideration of AROM pending secure application of the head to the cervix. Patient states that she is planning to avoid an epidural for now. Anticipate vaginal delivery. 05/21/2025 at 2115 [facility] Patient is found resting in bed; she is looking modestly more uncomfortable with her contractions and she does report she is feeling them. FHT category 1, contractions q 2-3 minutes with Pitocin at 6. SVE 4-5 / 50-60 / -3 / soft / posterior. AROM@2114-scant, clear fluid. AROM achieved using amniohook while RN provided gentle fundal pressure. SVE following AROM assured good application of head to the cervix. Anticipate vaginal delivery. 05/21/2025 at 2200 ([facility] Patient is growing visibly uncomfortable and she is feeling increasing pressure. She called out complaining of some light- headedness. Vitals are stable. SVE is limited by body position (patient sitting straight up), but not yet fully dilated; head is about 0 station. No blood or concerning discharge on glove. She is noted to be moderately hyperventilating with her contractions. Provided with a blue bag and encouraged to breath in and out of the bag for a couple breaths with each contraction. She continues to decline anything for pain control. Continue to anticipate vaginal delivery. 05/22/2025 AM ([facility]): Patient is found doing well. She is eating, ambulating, and urinating all without issue. Her pain is modest. Her lochia is apporpriate. She declines contraception and verbalizes understanding of her options. We discussed depression and its associated symptoms; she was encouraged to have a low threshold for letting us know if there are concerns. We discussed the importance of 6 weeks of pelvic rest. She is without issue. Blood pressures remain modestly elevated, though she continues to deny symptoms of pre-eclampsia. - - - - - - - - - - - - - - - Recommendations for Follow Up Recommended tests to be ordered by follow up provider: Blood pressure check 05/27 or 05/28 Home Meds and New Rx's Prescriptions: New Dermoplast 20 % aerosol 1 applic topical TID-QID 5 Days Qty: 78 1RF ibuprofen 600 mg tablet 600 mg PO Q6H 10 Days Qty: 40 0RF No Action cholecalciferol (vitamin D3) 125 mcg (5,000 unit) capsule 125 mcg PO DAILY calcium carb-magnesium carb 250-300 mg tablet 1 tab PO DAILY ferrous sulfate [Feosol] 325 mg (65 mg iron) tablet 325 mg PO DAILY Qty: 30 4RF Formula 1 EACH tablet 1 ea PO DAILY Fish Oil 1 EACH capsule 1 ea PO DAILY ascorbic acid (vitamin C) [Vitamin C] 500 mg tablet 500 mg PO DAILY Discharge Instructions Instructions: Preeclampsia, Vaginal Delivery (DC) Additional Instructions: ? Eat a well-rounded diet ? Ambulate regularly and engage in light activity while avoiding repeated heavy lifting (over 10 pounds) ? Take your medications as prescribed ? Please be sure to attend your follow-up visits ? If you have an incision, be sure to keep it clean and dry using simple soap and water; avoid scrubbing to avoid damage to suture ? If you have been prescribed narcotics such as tramadol or oxycodone or Forman, please note these medications have an addictive potential and should be used sparingly.? Please discard of any leftover medication either with your local pharmacy or by flushing the medication.? Do not share these medications with other individuals, and have a low threshold for seeking immediate medical evaluation if you experience any sleepiness, headaches, or any other concerns while using these medications. ? Please do not insert anything vaginally, including but not limited to, ta mpons, douching, or sexual intercourse, for a full 8 weeks and/or until you are medically cleared. ? If you have any concerns including fevers/chills, lightheadedness, visual changes, persistent headaches unresponsive to Tylenol, persistent nausea/vomiting, persistent abdominal pain, bruising and or leakage from your incision sites, excessive vaginal bleeding, or any other concerns, please have a low threshold for seeking immediate medical evaluation and/or reaching out to our clinic at [phone]. ? If you find yourself having crying spells you cannot explain, loss of appetite, persistent inability to sleep, lack of bonding with your baby, and/or general and persistent sadness, please feel free to reach out to our clinic immediately at [phone]. Referrals: Nu Benites DO [OSTEOPATHIC DOCTOR, Obstetrics] Referral Note: 05/27 or 05/28 for BP check 2 weeks for Activity:: pelvic rest x6 weeks Equipment/Supplies:: No Equipment Needed Diet:: Normal Diet Discharge Orders Discharge Orders: Discharge Order (Routine); Ordered 05/23/25 Ordered By: Nu Benites Discharge Data Discharge Date/Time-TO BE ENTERED AT DEPARTURE: 05/23/25 12:00 OB:DS Summary Summary Vaginal Delivery Method: Spontaneaous Episiotomy Description: None Laceration Description: None Laceration Extension: N/A Contraception Discussed Contraception Discussed: Yes, Gender-Baby A: Male weight: 7 lb 14.81 oz Status at Discharge Functional status at discharge: independent ambulation Overall status at discharge: patient is back to baseline Mental Status: mental status grossly normal Speech and Movement: speech and movement normal Mood: congruent mood Affect: normal affect Exam Physical Exam Vital signs: Temp Pulse Resp BP Pulse Ox 97.7 F 87 16 119/78 96 05/23/25 10:23 05/23/25 08:30 05/23/25 08:30 05/23/25 08:30 05/22/25 19:45 PFSH All Active Problems (Updated 05/23/25 @ 09:04 by Alaina Ferguson MD) care and examination immediately after delivery (Acute) BMI 35.0-35.9,adult (Acute) Delta-beta thalassemia trait (Acute) Pt is aware of Dx. Pt's mother and MGM also carry gene. Pt's eval for trait and was negative. Medical History (Updated 05/23/25 @ 09:04 by Alaina Ferguson MD) Family history of congenital heart defect pt's nephew (sister's son), required reconstructive surgery Chronic chest pain Family History Father Migraines, neuralgic Sister Seizures Delta thalassemia Maternal Aunt Bone cancer Delta thalassemia Mother Delta thalassemia Social History Smoking/Tobacco Use Status: Never Second Hand Exposure: No Smoking risk assessment performed?: Yes Alcohol Intake: former Drug use: Never Substance use type: does not use Adopted: No Foster care: No Household members: spouse and other Details: Gurwinder Aguayo [facility] Housing: house Number of Children: 4 current occupation: Homemaker Do you think of yourself as: straight/heterosexual Current gender identity: female What is your relationship status?: Panel score (0-1 are the most socially isolated patients): 1 Miriam/Yarsanism: yarsani Seatbelt use: always Helmet use: Yes Drive intox or ride w/intox sprinkler truck driver: No Water heater temp set <120 deg: Yes Working smoke detector in home: Yes Fire extinguisher in home: Yes Carbon monox detector in home: Yes Firearms in home: No Do you feel safe at home: Yes Do you feel safe in your relationship?: Yes Victim of physical abuse: No Victim of emotional abuse: No Victim of sexual abuse: No Female Reproductive History Menstrual control method: natural family planning History History 5 Para 4 Hx # Term Pregnancies 4 Multiple births 0 Hx # Pregnancies 0 Ectopic pregnancies 0 AB induced 0 Hx Number of Living Children 4 AB spontaneous 0 Past Pregnancies Del. Date GA/Weeks # Preg Succ Route Wgt Sex Labor Lgth Anesth esia Location Prov Complic 03/21/18 41 vaginal 8 lb 2 oz Male [place] 11/25/19 40 No vaginal 7 lb 8 oz Male 7 hours AOC 07/04/21 40 No vaginal 7 lb 4 oz Female 1 hour 46 min. A.O'Emerson, MD 05/24/23 40 No Yes vaginal 6 lb 12 oz Male Michelle Titi Delivery Date: 03/21/18 Last Updated by: Brook Christine CNM IOL for postdates. Olivier. Dr. Bautista Delivery Date: 11/25/19 Last Updated by: Sara Rueda L&D, Андрей Delivery Date: 07/04/21 Last Updated by: Brook Christine CNM Induced; elective due to maternal discomfort debby Delivery Date: 05/24/23 Last Updated by: Sara Rueda L&D, Sam DS: Data Vitals/I&O Vitals and I&O: Vital Signs Temperature 97.7 F 05/23/25 10:23 Temperature Source Oral 05/23/25 08:30 Pulse 87 05/23/25 08:30 Pulse Rhythm Regular 05/22/25 19:45 Respiratory Rate 16 05/23/25 08:30 Blood Pressure 119/78 05/23/25 08:30 Blood Pressure Mean 91 05/23/25 08:30 Pulse Oximetry 96 05/22/25 19:45 Pain Level 2 05/23/25 10:23 Comment pt reports RUQ pain, notified, Lab in room drawing preeclampsia labs. 05/21/25 23:54 Intake & Output 05/22/25 05/23/25 05/23/25 23:59 11:59 23:59 Other: Comment PT VOIDING INDEPENDENTLY, WITHOUT DIFFICULTY. pt voiding independently without difficulty
== END 2025-05-23 12:00 | disposition home or self-care (01) | DRG 807 ==
PROVIDERS: Admitting Provider Obstetrics & Gynecology; PCP Urology; Visit Provider Obstetrics & Gynecology
DX: O99.824 Streptococcus B carrier state complicating childbirth (principal); Z37.0 Single live birth; Z3A.40 40 weeks gestation of pregnancy; D56.3 Thalassemia minor; E66.9 Obesity, unspecified; O99.214 Obesity complicating childbirth; O99.12 Other diseases of the blood and blood-forming organs and certain disorders involving the immune mechanism complicating childbirth; R03.0 Elevated blood-pressure reading, without diagnosis of hypertension
CPT/HCPCS: 36415; 80053; 85027; 86850; 86900; 86901; 59200; J2540; J3490

== ENCOUNTER 2025-07-19 16:44 | Outpatient (REF) | payer MEDICAID, SELFPAY | END 2025-07-19 16:45 | disposition home or self-care (01) | LOC: LBN 16:44 | PROVIDERS: PCP Urology; Visit Provider Obstetrics & Gynecology | DX: Z12.4 Encounter for screening for malignant neoplasm of cervix (principal) | CPT/HCPCS: 88142; 87624 ==